=== PATIENT | female | born 1950 | race Hispanic/Latino ===

== ENCOUNTER 2018-01-16 13:29 | Emergency (ER) | payer BC, OTHER ==
[2018-01-16] MEDS ORDERED: LORazepam 2 MG/ML VIAL ONE (14:59)
[2018-01-16 15:02] LABS: Absolute Lymphocytes (CBC) 1.7 K/uL (0.7-4.9); Absolute Monocytes 0.9 K/uL (0.1-1.3); Basophils % 0.5 % (0-1.3); Eosinophils % 1.8 % (0-4.4); Hematocrit 45.7 % (36.0-45.0); Lymphocytes % 22.2 % (15.3-44.8); MCH 37.5 pg (27.0-35.0); MCV 109.6 fL (80-100); MPV 8.3 fL (7.6-11.3); Monocytes % 11.1 % (3.3-12.3); RBC Red Blood Cell Count 4.17 M/uL (3.86-4.86)
[2018-01-16 15:23] LABS: Potassium 3.5 mmol/L (3.5-5.1)
--- NOTE | 2018-01-16 16:03 | RAD REPORT ---
EXAM DESCRIPTION: CT - Soft Tissue Neck W/Contr CLINICAL HISTORY: SWELLING Neck and chest pain. COMPARISON: Thorax W/ Con dated 01/16/2018; Chest Single View dated 06/04/2017; Head Brain Wo Cont da carol 05/31/2017; Chest For Pe Angio dated 05/31/[address] soft tissue of the neck with contrast CT chest with contrast All CT scans are performed using dose optimization technique as appropriate and may include automated exposure control or mA/KV adjustment according to patient size. FINDINGS: Nasopharyngeal tissues are normal in appearance. Fossa Rosenmller are normal. Parapharyngeal fat triangles are symmetric. The salivary glands are symmetric. Tongue base is somewha t poorly assessed due to streak artifact. Left palatine tonsil appears mildly prominent. The epiglottic this is normal in thickness. No prevertebral soft tissue swelling. No jugular chain ad enopathy is present. The lungs are diffusely emphysematous. Subtle areas of ground-glass opacification bilaterally are not ed, significantly less than on the 05/31/2017 prior study. No worrisome nodule or mass is seen. No pulmonary embolism or acute aortic finding identified. No pleural or pericardial effusion. Mild thickening of the esophagus is present throughout its course. Prominent fatty liver is present. No lytic or blastic bone lesion. IMPRESSION: No acute abnormality is seen. Mild prominence of the left palatine tonsil is seen, nonspecific. Followup direct visualization may b e considered if clinically indicated. Mild bilateral ground-glass pulmonary opacities are seen, significantly improved since 06/12/2017 cherry or study.
[2018-01-16 17:06] LABS: Blood Morphology Comment NOTED (NOT SEEN); Macrocytosis 1+; Platelet Estimate ADEQ; Urine White Blood Cell Casts OK
--- NOTE | 2018-01-16 17:57 | EDPHYS ---
Physician Documentation [facility] Name: Yoanna Dillon Age: 67 yrs Sex: Female : 1950 Arrival Date: 01/16/2018 Time: 13:32 Bed 26 Private MD: ED Physician Fausto Edouard HPI: 01/16 17:49 This 67 yrs old Female presents to ER via Ambulatory with complaints of jr8 Numbness Of Face, Sinus Congestion, Swollen Glands. 17:49 Patient stated that she has been fighting a sinus infection for over a month. Had jr8 originally been on Augmentin but was having thrush and facial swelling so was reevaluated and taken off of that. Thrush is better but continues to have drainage, sinus pain, congestion, and now noticed swelling to bilateral supraclavicular regions . Severity of symptoms: At their worst the symptoms were moderate in the emergency department the symptoms are unchanged. The patient has not experienced similar symptoms in the past. The patient has not recently seen a physician. Historical: - Allergies: 13:46 No Known Allergies; aj1 - PMHx: 13:46 None; aj1 - Immunization history:: Adult Immunizations. - Social history:: Smoking status: Patient uses tobacco products, smokes one pack cigarettes per day. - Ebola Screening: : Patient denies travel to an Ebola-affected area in the 21 days before illness onset. ROS: 17:49 Eyes: Negative for injury, pain, redness, and discharge, Cardiovascular: Negative for jr8 chest pain, palpitations, and edema, Respiratory: Negative for shortness of breath, cough, wheezing, and pleuritic chest pain, Abdomen/GI: Negative for abdominal pain, nausea, vomiting, diarrhea, and constipation, Back: Negative for injury and pain, MS/Extremity: Negative for injury and deformity, Skin: Negative for injury, rash, and discoloration, Neuro: Negative for headache, weakness, numbness, tingling, and seizure. 17:49 ENT: Positive for rhinorrhea, sinus congestion, sinus pain, Negative for drainage from ear(s), ear pain, sore throat. 17:49 Neck: Positive for swollen nodes. Exam: 17:49 Head/Face: Normocephalic, atraumatic. Eyes: Pupils equal round and reactive to light, jr8 extra-ocular motions intact. Lids and lashes normal. Conjunctiva and sclera are non-icteric and not injected. Cornea within normal limits. Periorbital areas with no swelling, redness, or edema. ENT: Nares patent. No nasal discharge, no septal abnormalities noted. Tympanic membranes are normal and external auditory canals are clear. Oropharynx with no redness, swelling, or masses, exudates, or evidence of obstruction, uvula midline. Mucous membranes moist. Neck: Trachea midline, no thyromegaly or masses palpated, and no cervical lymphadenopathy. Supple, full range of motion without nuchal rigidity, or vertebral point tenderness. No Meningismus. Cardiovascular: Regular rate and rhythm with a normal S1 and S2. No gallops, murmurs, or rubs. Normal PMI, no JVD. No pulse deficits. Respiratory: Lungs have equal breath sounds bilaterally, clear to auscultation and percussion. No rales, rhonchi or wheezes noted. No increased work of breathing, no retractions or nasal flaring. Abdomen/GI: Soft, non-tender, with normal bowel sounds. No distension or tympany. No guarding or rebound. No evidence of tenderness throughout. Back: No spinal tenderness. No costovertebral tenderness. Full range of motion. Skin: Warm, dry with normal turgor. Normal color with no rashes, no lesions, and no evidence of cellulitis. MS/ Extremity: Pulses equal, no cyanosis. Neurovascular intact. Full, normal range of motion. Neuro: Awake and alert, GCS 15, oriented to person, place, time, and situation. Cranial nerves II-XII grossly intact. Motor strength 5/5 in all extremities. Sensory grossly intact. Cerebellar exam normal. Normal gait. 17:49 Chest/axilla: Lymph nodes: supraclavicular nodes, non-tender, palpable, bilaterally. Vital Signs: 13:46 BP 182 / 120; Pulse 108; Resp 20; Temp 97.1; Pulse Ox 97% on R/A; Weight 59.87 kg (R); aj1 Height 5 ft. 2 in. (157.48 cm) (R); Pain 0/10; 14:56 BP 173 / 92; Pulse 91; Resp 17; Pulse Ox 96% on R/A; tw2 15:38 BP 147 / 81; Pulse 75; Resp 17; Pulse Ox 96% on R/A; tw2 16:30 BP 162 / 92; Pulse 76; Resp 17; Pulse Ox 98% on R/A; tw2 17:29 BP 164 / 92; Pulse 95; Resp 17; Pulse Ox 97% on R/A; tw2 13:46 Body Mass Index 24.14 (59.87 kg, 157.48 cm) aj1 MDM: 14:21 Patient medically screened. jr8 17:49 Data reviewed: vital signs, nurses notes, lab test result(s), radiologic studies, CT jr8 scan, and as a result, I will discharge patient. Data interpreted: Pulse oximetry: on room air is 97 %. Interpretation: normal. Counseling: I had a detailed discussion with the patient and/or guardian regarding: the historical points, exam findings, and any diagnostic results supporting the discharge/admit diagnosis, lab results, radiology results, the need for outpatient follow up, an ENT specialist, to return to the emergency department if symptoms worsen or persist or if there are any questions or concerns that arise at home. 01/16 14:40 Order name: CBC with Diff; Complete Time: 17:15 jr8 01/16 14:40 Order name: Basic Metabolic Panel; Complete Time: 15:31 8 01/16 15:32 Order name: CT Soft Tissue Neck W/contr; Complete Time: 16:06 jr8 01/16 15:32 Order name: CT Chest W/ Con 8 01/16 17:07 Order name: CBC Smear Scan; Complete Time: 17:15 EDOH 01/16 14:40 Order name: IV; Complete Time: 14:56 jr8 Administered Medications: 14:55 Drug: Ativan 1 mg Route: IVP; Site: right antecubital; tw2 15:20 Follow up: Response: No adverse reaction; Marked relief of symptoms tw2 Disposition: 01/16/18 17:57 Discharged to Home. Impression: Acute sinusitis, Acute lymphadenitis. - Condition is Stable. - Discharge Instructions: Sinusitis, Adult, Lymphadenopathy. - Prescriptions for Prednisone 20 mg Oral Tablet - take 1 tablet by ORAL route once daily for 5 days; 5 tablet. Zithromax Z- Antwan 250 mg Oral Tablet - take 1 tablet by ORAL route as directed for 5 days Day 1 - take two (2) tablets one time. Day 2, 3, 4 , 5 take one (1) tablet once daily.; 6 tablet. - Medication Reconciliation Form, Thank You Letter, Antibiotic Education, Prescription Opioid Use form. - Follow up: Private Physician; When: 5 - 6 days; Reason: Recheck today's complaints, Continuance of care, Re-evaluation by your physician. - Problem is new. - Symptoms have improved. Signatures: Dispatcher [employer] EDFariha Wren RN RN aj1 Karson Colin PA PA jr8 Melva Shaw RN RN tw2 Corrections: (The following items were deleted from the chart) 18:02 17:57 01/16/2018 17:57 Discharged to Home. Impression: Acute sinusitis; Acute tw2 lymphadenitis. Condition is Stable. Forms are Medication Reconciliation Form, Thank You Letter, Antibiotic Education, Prescription Opioid Use. Follow up: Private Physician; When: 5 - 6 days; Reason: Recheck today's complaints, Continuance of care, Re-evaluation by your physician. Problem is new. Symptoms have improved. jr8
--- NOTE | 2018-01-16 17:57 | ER ---
Nurse's Notes [facility] Name: Yoanna Dillon Age: 67 yrs Sex: Female : 1950 Arrival Date: 01/16/2018 Time: 13:32 Bed 26 Private MD: Diagnosis: Acute sinusitis;Acute lymphadenitis Presentation: 01/16 13:42 Presenting complaint: Patient states: "3 weeks ago I went to a doctor about a sinus aj1 infection and he put me on antibiotics and a nose spray and something for sea sickness. About 7 days into taking the antibiotic I noticed my throat was swelling, and I saw another doctor and diagnosed me with thrush, and I took medications for those. The swelling in my face went down, but my lymph nodes are really swollen. Transition of care: patient was not received from another setting of care. Onset of symptoms was January 16, 2018. Risk Assessment: Do you want to hurt yourself or someone else? Patient reports no desire to harm self or others. Initial Sepsis Screen: Does the patient meet any 2 criteria? HR > 90 bpm. Does the patient have a suspected source of infection? Yes: Other: sinus infection. Care prior to arrival: None. 13:42 Method Of Arrival: Ambulatory aj1 13:42 Acuity: BIENVENIDO 3 aj1 Triage Assessment: 13:46 General: Appears in no apparent distress. comfortable, Behavior is calm, cooperative, aj1 appropriate for age. Pain: Denies pain. Neuro: Level of Consciousness is awake, alert, obeys commands. Cardiovascular: Patient's skin is warm and dry. Respiratory: Airway is patent Respiratory effort is even, unlabored, Respiratory pattern is regular, symmetrical. Historical: - Allergies: 13:46 No Known Allergies; aj1 - PMHx: 13:46 None; aj1 - Immunization history:: Adult Immunizations. - Social history:: Smoking status: Patient uses tobacco products, smokes one pack cigarettes per day. - Ebola Screening: : Patient denies travel to an Ebola-affected area in the 21 days before illness onset. Screenin:45 Abuse screen: Denies threats or abuse. Nutritional screening: No deficits noted. tw2 Tuberculosis screening: No symptoms or risk factors identified. Fall Risk None identified. Assessment: 14:00 General: Appears well groomed, Behavior is anxious. Pain: Denies pain. Neuro: Level of tw2 Consciousness is awake, alert, obeys commands, Oriented to person, place, situation. Cardiovascular: Denies chest pain, shortness of breath, Heart tones S1 S2 Capillary refill < 3 seconds Patient's skin is warm and dry. Respiratory: Airway is patent Respiratory effort is even, unlabored, Respiratory pattern is regular, symmetrical, Breath sounds are clear bilaterally. GI: No signs and/or symptoms were reported involving the gastrointestinal system. Abdomen is flat, Bowel sounds present X 4 quads. : No signs and/or symptoms were reported regarding the genitourinary system. EENT: Reports nasal congestion pain. Derm: swelling noted supraclavicular area. Musculoskeletal: Range of motion: intact in all extremities. 15:42 Reassessment: Patient appears in no apparent distress at this time. Patient and/or tw2 family updated on plan of care and expected duration. Pain level reassessed. Patient is alert, oriented x 3, equal unlabored respirations, skin warm/dry/pink. pt appears to be sleeping at this time, nad. 16:30 Reassessment: Patient appears in no apparent distress at this time. Patient and/or tw2 family updated on plan of care and expected duration. Pain level reassessed. Patient is alert, oriented x 3, equal unlabored respirations, skin warm/dry/pink. 17:30 Reassessment: Patient appears in no apparent distress at this time. Patient and/or tw2 family updated on plan of care and expected duration. Pain level reassessed. Patient is alert, oriented x 3, equal unlabored respirations, skin warm/dry/pink. 18:02 Reassessment: Patient appears in no apparent distress at this time. Patient and/or tw2 family updated on plan of care and expected duration. Pain level reassessed. Patient is alert, oriented x 3, equal unlabored respirations, skin warm/dry/pink. Vital Signs: 13:46 BP 182 / 120; Pulse 108; Resp 20; Temp 97.1; Pulse Ox 97% on R/A; Weight 59.87 kg (R); aj1 Height 5 ft. 2 in. (157.48 cm) (R); Pain 0/10; 14:56 BP 173 / 92; Pulse 91; Resp 17; Pulse Ox 96% on R/A; tw2 15:38 BP 147 / 81; Pulse 75; Resp 17; Pulse Ox 96% on R/A; tw2 16:30 BP 162 / 92; Pulse 76; Resp 17; Pulse Ox 98% on R/A; tw2 17:29 BP 164 / 92; Pulse 95; Resp 17; Pulse Ox 97% on R/A; tw2 13:46 Body Mass Index 24.14 (59.87 kg, 157.48 cm) aj1 ED Course: 13:32 Patient arrived in ED. as 13:45 Triage completed. aj1 13:46 Arm band placed on Patient placed in an exam room. aj1 13:50 Placed in gown. Bed in low position. Call light in reach. Pulse ox on. NIBP on. Warm tw2 blanket given. 13:57 Melva Shaw RN is Primary Nurse. tw2 14:21 Karson Colin PA is PHCP. jr8 14:21 Fausto Edouard MD is Attending Physician. jr8 14:45 Inserted saline lock: 22 gauge in right antecubital area, using aseptic technique. tw2 Blood collected. 15:[address] sj 15:52 CT Soft Tissue Neck W/contr In Process Unspecified. EDMS 15:52 CT Chest W/ Con In Process Unspecified. EDMS 15:59 CT completed. Patient tolerated procedure well. Patient moved back from CT. vm2 18:01 No provider procedures requiring assistance completed. IV discontinued, intact, tw2 bleeding controlled, No redness/swelling at site. Pressure dressing applied. Administered Medications: 14:55 Drug: Ativan 1 mg Route: IVP; Site: right antecubital; tw2 15:20 Follow up: Response: No adverse reaction; Marked relief of symptoms tw2 Outcome: 17:57 Discharge ordered by . jr8 18:01 Discharged to home ambulatory, with family, with significant other. tw2 18:01 Condition: stable 18:01 Discharge instructions given to patient, family, significant other, Instructed on discharge instructions, follow up and referral plans. medication usage, Demonstrated understanding of instructions, follow-up care, medications, Prescriptions given X 2. 18:02 Patient left the ED. tw2 Signatures: Dispatcher [employer] EDDC Fariha Blancas RN RN aj1 Patty Anguiano Amelia as Karson Colin PA PA jr8 Melva Shaw RN RN tw2 [place], [facility]2
[2018-01-16 18:22] VITALS: TEMP 97.1
[2018-01-16 18:27] VITALS: BP 164/92; O2SAT 97
--- NOTE | 2018-01-17 09:47 | RAD REPORT ---
EXAM DESCRIPTION: CT - Thorax W/ Con CLINICAL HISTORY: SWELLING Neck and chest pain. COMPARISON: Thorax W/ Con dated 01/16/2018; Chest Single View dated 06/04/2017; Head Brain Wo Cont da carol 05/31/2017; Chest For Pe Angio dated 05/31/2017 TECHNIQUE: CT soft tissue of the neck with contrast CT chest with contrast All CT scans are performed using dose optimization technique as appropriate and may include automated exposure control or mA/KV adjustment according to patient size. FINDINGS: Nasopharyngeal tissues are normal in appearance. Fossa Rosenmller are normal. Parapharyngeal fat triangles are symmetric. The salivary glands are symmetric. Tongue base is somewha t poorly assessed due to streak artifact. Left palatine tonsil appears mildly prominent. The epiglottic this is normal in thickness. No prevertebral soft tissue swelling. No jugular chain ad enopathy is present. The lungs are diffusely emphysematous. Subtle areas of ground-glass opacification bilaterally are not ed, significantly less than on the 05/31/2017 prior study. No worrisome nodule or mass is seen. No pulmonary embolism or acute aortic finding identified. No pleural or pericardial effusion. Mild thickening of the esophagus is present throughout its course. Prominent fatty liver is present. No lytic or blastic bone lesion. IMPRESSION: No acute abnormality is seen. Mild prominence of the left palatine tonsil is seen, nonspecific. Followup direct visualization may b e considered if clinically indicated. Mild bilateral ground-glass pulmonary opacities are seen, significantly improved since 06/12/2017 cherry or study.
== END 2018-01-16 18:02 | disposition home or self-care (01) ==
LOC: ER 13:29
DX: J01.90 Acute sinusitis, unspecified (principal); L04.9 Acute lymphadenitis, unspecified; F17.210 Nicotine dependence, cigarettes, uncomplicated
CPT/HCPCS: 36415; 70491; 71260; 80048; 85025; 96374; 99284; Q9967

== ENCOUNTER 2021-09-06 18:29 | Inpatient (IN) | payer OTHER ==
--- NOTE | 2021-09-06 10:30 | R.PREADM ---
PRE-ADMISSION SCREENING FORM SCREENING DATE AND TIME 09/05/2021 11:35 (CDT) ANTICIPATED REHAB ADMISSION DATE 09/07/2021 REFERRING FACILITY [facility] REFERRAL DATE AND TIME 09/02/2021 11:35 (CDT) REFERRAL ROOM# J513 ACUTE ADMIT DATE 08/31/2021 Previous Rehabilitation(s): No. 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 Manuel Benitez M.D. MR# [id number] NAME LAICIA FERRELL ADDRESS [address] [place] [address] PHONE [facility] [[email or web address] [id number] DATE OF 1950 AGE 71 SSN# [id number] GENDER female MARITAL STATUS ADMIT FROM 02 - [facility] PRE-HOSPITAL LIVING SETTING 01 - Home (private home/apt. board/care, assisted living, [place] [facility], transitional living) HOME TYPE AND DETAILS Type of home: single family house # of levels in the residence: 1 # of steps within the residence: 0 # of steps to enter the residence: 20 PRE-HOSPITAL LIVING WITH Family/Relatives FAMILY SUPPORT Yes PRIMARY FAMILY CONTACT NAME GLORIA JACOME PHONE PRIMARY FAMILY CONTACT ON ADM.? no IS PRIMARY FAMILY CONTACT AUTH. REP.? no 1ST EMERGENCY CONTACT GLORIA AYAZ PHONE 1ST CONTACT ON ADM. no IS 1ST CONTACT AUTH. REP.? no PHONE 2ND CONTACT ON ADM.? no PATIENT EMPLOYMENT STATUS Retired (for age) PATIENT EMPLOYER No Employer PAYOR INFORMATION: 1ST PAYOR NAME ALLA 1ST PAYOR PHONE [phone] 1ST PAYOR INJURY/ILLNESS DUE TO ACCIDENT? No ANOTHER CONSTITUTION PARTY RESPONSIBLE? No PRIMARY REHAB/ACUTE DIAGNOSIS: ACUTE RIGHT SIDED SUBDURAL HEMATOMA ONSET DATE 08/31/2021 REHAB IMPAIRMENT CATEGORY (ALICIA): 03 Nontraumatic brain injury (NTBI) MEETS 60% rule PRIMARY DIAGNOSIS-RELATED SURGERIES: N/A INTERVENTIONS: - DEPRESSION Patient will continue with administered medications per MD - Hypertension Promote regular physical activity Assess/ Monitor patient B/P and treat with prescribed medications Implement healthy diet Maintain SBP <150 - Pain Non pharmacological pain management Monitor for headaches Educate pt on relaxation techniques and deep breathing Assess/Monitor pt pain and treat with prescribed pain medications - Wound care Baci TID for 1 week, TID thereafter RISK FOR COMPLICATIONS: - Skin Breakdown Encourage ambulation as tolerated Nursing will assess skin daily using assessment tool and will place on Skin Breakdown Precautions as Indicated per protocol Use of pillows or foam wedges while in bed Repositioning q 2 hours - Falls Patient will be evaluated for Fall Precautions and will be placed on Fall Precautions as indicated pe r protocol. Provide assistance getting out of bed and with ambulation Provide assistive devices Maintain call light within patient reach for easy access to nursing assistance - WEAKNESS Nursing and therapy will help to get patient stronger - Pain Educate patient on relaxation and deep breathing techniques Administer prescribed pain medication as needed Anticipate the need for pain medication for optimal pain managment - Stroke Assess/ Monitor and maintain patient pain level Assess/ Monitor patient blood pressure - DVT Active and Passive ROM exercises Assist patient with frequent position changes Elevate BLE SUMMARY OF ACUTE HOSPITALIZATION: Pt. is a 71 yo Right-handed female. On 08/31/2021 she was admitted to [facility] with diagnosis ACUTE RIGHT SIDED SUBDURAL HEMATOMA . Her impairment category is Brain Dysfunction 02 - Non-traumatic Brain Dysfunction (02.1). Pre-morbidly, Pt. was independent/mod-I in Locomotion, Safety Awareness, Social Cognition, Balance, a nd Transfers Control; and she had good Sphincter Control, Self-Care, Communication, and Endurance. Currently, she has deficits of Locomotion, Social Cognition, Safety Awareness, Balance, Transfers Con trol, Sphincter Control, Self-Care, Communication, and Endurance. Pt. is now referred to [facility] for acute in-patient rehabilitation in order to maximize patient's functional independence in activities of daily living, strength, ROM, and mobi lity. Patient has realistic goal of being discharged at assistance level 7-Ind to reside at Home with Fami ly/Relatives. PAST MEDICAL AND SURGICAL HISTORY: - MedicalCardiovascular HTN hysterectomy cataract procedure - Mental Illness Depression MEDICATION ALLERGIES: No Known Drug Allergies (NKDA) ENVIRONMENTAL ALLERGIES: - Substance Allergies None Known - Other Allergies None Known CODE STATUS: Full code WEIGHT/HEIGHT/BMI: WEIGHT unknown lbs HEIGHT 5' unknown" BMI N/A DIET: - Diet Type Regular - Diet - Solid Texture Regular - Diet - Liquid Texture Regular - Tube Feed N/A SKIN DIAGRAM: on Head; extent - small; stage - NS(Not Stageable). Treatment - . REVIEW OF SYSTEMS: - Gen Alert and awake Lying in bed No apparent distress Oriented to: person, time, and place - Vital Signs Temperature: 98.1 F SBP/DBP: 164/92 Pulse: 103 Resp: 27 Vital signs stable, afebrile - CVS RRR VITAL SIGNS Temperature: 98.1 F SBP/DBP: 164/92 Pulse: 103 Resp: 27 Vital signs stable, afebrile MEDICATIONS/TREATMENT: Other- See attached MAR (Medication Administration Record). CURRENT SPHINCTER CONTROL: Pre-hospital bladder status: unspecified # of bladder accidents in the last 7 days prior to screenin Pre-hospital bowel status: unspecified # of bowel accidents in the last 7 days prior to screenin Last Bowel Movement Date: 09/05/2021 CURRENT LOCOMOTION STATUS: distance walked 2 feet TO THE RIGHT 2 TO THE LEFT DETAILED CURRENT FUNCTIONAL STATUS: - Bladder accident frequency: 7-Ind - No accidents in the past 7 days - Bowel accident frequency: 7-Ind - No accidents in the past 7 days - Walking score based on distance walked: 0(N/A) score based on distance walked: 1(<=50ft) - Wheelchair score based on distance traveled: 0(N/A) QI SCORES: - Self-Care A. Eating 03-Partial/moderate assistance B. Oral hygiene 03-Partial/moderate assistance C. Toileting hygiene 03-Partial/moderate assistance E. Shower/bathe self 03-Partial/moderate assistance F. Upper body dressing 03-Partial/moderate assistance G. Lower body dressing 03-Partial/moderate assistance H. Putting on/taking off footwear 88-Not attempted due to medical condition or safety concerns - Mobility A. Roll left and right 03-Partial/moderate assistance B. Sit to lying 03-Partial/moderate assistance C. Lying to sitting on side of bed 03-Partial/moderate assistance D. Sit to stand 03-Partial/moderate assistance E. Chair/lem-nn-burhl transfer 03-Partial/moderate assistance F. Toilet transfer 03-Partial/moderate assistance G. Car transfer 88-Not attempted due to medical condition or safety concerns I. Walk 10 feet 88-Not attempted due to medical condition or safety concerns J. Walk 50 feet with two turns 88-Not attempted due to medical condition or safety concerns K. Walk 150 feet 88-Not attempted due to medical condition or safety concerns L. Walking 10 feet on uneven surfaces 88-Not attempted due to medical condition or safety concerns M. 1 step (curb) 88-Not attempted due to medical condition or safety concerns N. 4 steps 88-Not attempted due to medical condition or safety concerns O. 12 steps 88-Not attempted due to medical condition or safety concerns P. Picking up object 88-Not attempted due to medical condition or safety concerns R. Wheel 50 feet with two turns 88-Not attempted due to medical condition or safety concerns S. Wheel 150 feet 88-Not attempted due to medical condition or safety concerns - Bladder and Bowel Bladder continence Bowel continence - Endurance Fair - Balance Fair - Safety Awareness Fair CURRENT FUNC. DEFICITS: Self-Care, Mobility, Endurance, Balance, and Safety Awareness CURRENT / PREVIOUS ASSISTIVE DEVICES: Rolling Walker HISTORY OF FALLS. HAS THE PATIENT HAD TWO OR MORE FALLS IN THE PAST YEAR OR ANY FALL WITH INJURY IN T HE PAST YEAR?: No PRIOR SURGERY. DID THE PATIENT HAVE MAJOR SURGERY DURING THE 100 DAYS PRIOR TO ADMISSION?: No THERAPY NOTES FROM ACUTE CARE: Attached. WEIGHT BEARING STATUS: WBAT PATIENT NEEDS ACTIVE AND ONGOING THERAPEUTIC INTERVENTION OF MULTIPLE THERAPY DISCIPLINES, INCLUDING: - Dietary and Nutrition Adequate Nutrition. Nutritional Education. Nutritional Supplements. Evaluate and Treat. - Occupational Therapy Cognitive Retraining. Patient needs Occupational Therapy for a daily minimum of 1.5 hours at least 5 out of 7 days, to improve Activities of Daily Living, including: Eating, Grooming, Bathing, Dressing, Toileting, Toilet Transfers, Community Reintegration, Higher functional activities, Adaptive Equipme nt, Splinting, Household Tasks, and Other activities as determined. Visual Perceptual Training. Evalu ate and Treat. Safety Awareness. ADL Training. Transfer Training. Household Tasks. Adaptive Equipment . UE Strengthening. Patient/Family Education. - Speech Therapy Cognitive Training. Expressive Language Skills. Memory Strategies. Patient needs Speech Therapy for a daily minimum of 1.5 hours at least 5 out of 7 days, to improve: Swallowing, Cognition, Language Ski lls, and Compensatory Strategies. Receptive Language Skills. Speech Intelligibility Training. Evaluat e and Treat. - Physical Therapy Patient needs Physical Therapy for a daily minimum of 1.5 hours at least 5 out of 7 days, to improve: Mobility, Strengthening, Transfers, Stretching, ROM, Endurance, Ability to manage stairs, Gait, and Balance. Evaluate and Treat. Balance Training. Gait Training. Safety Awareness. Transfer Training. Pa tient/Family Education. LE Strengthening. Modalities Training. PATIENT NEEDS CLOSE MEDICAL SUPERVISION BY A REHABILITATION PHYSICIAN FOR: Coordination of Treatment Team Wound Care PATIENT REQUIRES 24X7 REHAB NURSING FOR MEDICAL AND FUNCTIONAL MGT. OF THE FOLLOWING DEFICITS: Disease Management Medication Management Patient requires 24x7 Rehabilitation Nursing for: Pain Issues, Identifying and preventing risk factor s, Monitoring and reporting current medical conditions, Assisting with ambulation and transfer, Amor ting with all ADL-s, Teaching patients about disease process and medications, Family teaching, Provid ing safe environment, Bowel and Bladder Issues, Skin Integrity, and Medication Management Patient/Family Education Providing Safe Environment Skin Integrity PATIENT REQUIRES INTENSIVE, COORDINATED INTERDISCIPLINARY APPROACH TO REHAB: Arranging Home Equipment/Services Discharge Planning Family Intervention/Training Patient needs Dietary and Nutrition Services for: Adequate Nutrition, Nutritional Supplements, and Nu tritional Education Patient needs General Merchandise Salesperson and/or Case Management for: Discharge Planning, Arranging Home Equipmen t or Services, and Family Interventions General Merchandise Salesperson/Case Management PATIENT REHAB POTENTIAL: Naye FERRELL is able and expected to receive 3 hours of individualized therapy daily on at least 5 of every 7 days Naye FERRELL's prognosis for significant practical improvement within a reasonable period of time a ppears Good Expected level of measurable improvement will be of a practical value to Naye FERRELL's functional capacity or adaptations to impairments Has a viable Discharge Plan Medically appropriate; condition is sufficiently stable to participate in intensive rehab program DISCHARGE PLAN: - Estimated Length of Stay (days) 13. - Consensus on plan Discharge plan has been discussed with primary caregiver. Patient/Family is in agreement with the heavenly n. Primary caregiver is in agreement with the plan. - Patient/Family Goals Return home independently. - Planned Living Setting Upon Discharge Home, to live with Family/Relatives. Transitional Living. RECOMMENDED CARE LEVEL: IRF RECOMMENDATION DETAILS: Recommended Admission to Comprehensive Rehabilitation Program to Increase Functional [place] SCREENER'S COMPLETENESS CONFIRMATION: - Screening Confirmation The patient data collection on this preadmission screening form is finished PHYSICIANS REVIEW AND ADMISSION DETERMINATION Admit - Based on my review of the Pre-Admission Screening results, in my medical judgment and experie nce, I concur with the findings and recommend admission to [facility], as this patient requires an IRF level of care. SIGNATURE PANEL: Clinical Liaison - [electronically] signed by Elidia Steen on 09/06/2021 at 10:08 (CDT) Physician Reviewer - [electronically] signed by Dr. Manuel Benitez M.D. on 09/06/2021 at 10:30 (CDT )
--- OUTSIDE RECORDS SUMMARY | 2021-09-06 18:31 | XMS REPORT | Continuity of Care Document ---
:1950 Author Organization [facility] t Address [address] [id number] Care Team Providers Name Role Phone BARB ELLISON Primary Care Physician Unavailable SERGEY DORSEY Attending Clinician Unavailable DR BARB ELLISON Attending Clinician Unavailable [phone] Attending Clinician Unavailable [id number] Attending Clinician Unavailable MEGA SHERWOOD Admitting Clinician Unavailable DR SCOT Admitting Clinician Unavailable Payers Payer Name Policy Type Policy Number Effective Date Expiration Date [facility] [employer]LL[employer] [id number] 2021 00:00:00 [facility] [id number] [employer]LLMED Problems This patient has no known problems. Allergies, Adverse Reactions, Alerts Allergy Allergy Status Severity Reaction(s) Onset Inactive Treating Comm ents Source Name Type Date Date Clinician No Known MA Active UNKNOWN [facility] Medications This patient has no known medications. Procedures This patient has no known procedures. Encounters Start End Encounter Admission Attending Care Care Encounter Source Date/Time Date/Time Type Type Clinicians Facility Department ID 2021-09-05 Outpatient [facility] [id number] [place] 10:53:56 [id number] Health 2021-08-31 2021-09-06 Inpatient E [facility] [address] [facility] 07:15:00 16:08:00 SERGEY 2021-06-07 2021-06-07 Outpatient BARB REINOSO OS [id number] El 09:43:00 10:46:00 [id number] Cam po [id number] [facility] Results This patient has no known results.
[2021-09-06] MEDS ORDERED: LIDOCAINE 4% TOP SOLUTION MM ONE (19:18)
[2021-09-06] MEDS: BACITRACIN OINTMENT 14 GM TUBE TOP SCH (21:00)
[2021-09-06] MEDS ORDERED: BACITRACIN OINTMENT 14 GM TUBE TOP SCH (21:00)
[2021-09-06] MEDS: METOCLOPRAMIDE 5 MG TAB PO SCH (21:31)
[2021-09-06] MEDS: DOCUSATE NA 100 MG CAP PO SCH (21:31)
[2021-09-06] MEDS: ACETAMINOPHEN 325 MG TABLET PO PRN (21:31)
[2021-09-06] MEDS: levETIRAcetam 500 MG TAB PO SCH (21:31)
[2021-09-06] MEDS: GABAPENTIN 300 MG CAP PO SCH (21:32)
[2021-09-06] MEDS: MELATONIN 3 MG TABLET PO SCH (21:32)
[2021-09-06] MEDS: methocarbamoL 500 MG TAB PO SCH (21:32)
[2021-09-07 04:50] LABS: Absolute Lymphocytes (CBC) 1.4 K/uL (0.7-4.9); Hematocrit 24.6 % (36.0-45.0); Lymphocytes % 25.5 % (15.3-44.8); MCV 111.2 fL (80-100); MPV 7.7 fL (7.6-11.3); RBC Red Blood Cell Count 2.21 M/uL (3.86-4.86)
[2021-09-07] MEDS: methocarbamoL 500 MG TAB PO SCH ×3 (04:50→21:11)
[2021-09-07 05:06] LABS: Albumin 2.5 g/dL (3.4-5.0); Potassium 3.4 mmol/L (3.5-5.1); Prealbumin 11.4 mg/dL (20-40)
[2021-09-07 05:08] LABS: Magnesium 1.4 mg/dL (1.8-2.4)
[2021-09-07 05:21] LABS: Blood Morphology Comment NOTED (NOT SEEN); Macrocytosis 2+; Platelet Estimate ADEQ
[2021-09-07] MEDS: METOCLOPRAMIDE 5 MG TAB PO SCH ×4 (07:46→21:11)
[2021-09-07] MEDS: POTASSIUM 25 MEQ EFFERV TAB PO SCH (07:46)
[2021-09-07] MEDS: NICOTINE 14 MG/PAT TD SCH (07:47)
[2021-09-07] MEDS: THIAMINE HCL 100 MG TABLET PO SCH (07:47)
[2021-09-07] MEDS: DOCUSATE NA 100 MG CAP PO SCH ×3 (07:47→21:11)
[2021-09-07] MEDS: levETIRAcetam 500 MG TAB PO SCH ×2 (07:47→21:12)
[2021-09-07] MEDS: FOLIC ACID 1 MG TABLET PO SCH (07:47)
[2021-09-07] MEDS: MULTIVITAMIN TAB PO SCH (07:47)
[2021-09-07] MEDS: GABAPENTIN 300 MG CAP PO SCH ×2 (07:48→14:03)
[2021-09-07] MEDS: SOD CHLORIDE 0.65% NASAL SPRAY NAS PRN ×2 (07:49→21:10)
[2021-09-07] MEDS: LIDOCAINE 4% TOP SOLUTION MM SCH (07:49)
[2021-09-07] MEDS: BACITRACIN OINTMENT 14 GM TUBE TOP SCH ×3 (07:50→21:10)
[2021-09-07] MEDS: CODEINE 30MG/APAP 300MG TAB PO PRN ×2 (08:05→17:44)
[2021-09-07] MEDS: DRONABINOL 2.5 MG PO SCH ×2 (09:00→21:00)
--- NOTE | 2021-09-07 09:47 | P.RH.PN ---
Estimated Length of Stay: 14 Expected Discharge Date: 09/20/21 Discharge Disposition Plan: Home Family Support: Yes Half-Way Goal: Mobility, Transfers, Self Care Vital Signs: Last Vital Signs Temp 97.4 F 09/07/21 08:26 Pulse 82 09/07/21 08:26 Resp 17 09/07/21 08:26 BP 176/70 H 09/07/21 08:26 Pulse Ox 95 09/07/21 08:26 Laboratory: Laboratory Last Values WBC 5.7 K/uL (4.3-10.9) 09/07/21 04:06 RBC 2.21 M/uL (3.86-4.86) L 09/07/21 04:06 Hgb 8.4 g/dL (12.0-15.0) L 09/07/21 04:06 Hct 24.6 % (36.0-45.0) L 09/07/21 04:06 MCV 111.2 fL (80-100) H D 09/07/21 04:06 MCH 38.2 pg (27.0-35.0) H D 09/07/21 04:06 MCHC 34.3 g/dL (32.0-36.0) 09/07/21 04:06 RDW 17.2 % (12.1-15.2) H 09/07/21 04:06 Plt Count 266 K/uL (152-406) 09/07/21 04:06 MPV 7.7 fL (7.6-11.3) 09/07/21 04:06 Neutrophils % 50.1 % (41.7-73.7) 09/07/21 04:06 Lymphocytes % 25.5 % (15.3-44.8) 09/07/21 04:06 Monocytes % 20.8 % (3.3-12.3) H 09/07/21 04:06 Eosinophils % 2.6 % (0-4.4) 09/07/21 04:06 Basophils % 1.0 % (0-1.3) 09/07/21 04:06 Absolute Neutrophils 2.9 K/uL (1.8-8.0) 09/07/21 04:06 Segmented Neutrophils 48 % (40-80) 09/07/21 04:06 Band Neutrophils 3 % (0-1) H 09/07/21 04:06 Absolute Lymphocytes 1.4 K/uL (0.7-4.9) 09/07/21 04:06 Lymphocytes 26 % (15-42) 09/07/21 04:06 Monocytes 17 % (0-10) H 09/07/21 04:06 Absolute Monocytes 1.2 K/uL (0.1-1.3) 09/07/21 04:06 Eosinophils 1 % (0-3) 09/07/21 04:06 Absolute Eosinophils 0.1 K/uL (0-0.5) 09/07/21 04:06 Basophils 1 % (0-1) 09/07/21 04:06 Absolute Basophils 0.1 K/uL (0-0.5) 09/07/21 04:06 Reactive Lymphocytes 4 % 09/07/21 04:06 Platelet Estimate Adeq 09/07/21 04:06 Macrocytosis 2+ 09/07/21 04:06 Morphology Comment Noted (NOT SEEN) 09/07/21 04:06 Sodium 138 mmol/L (136-145) 09/07/21 04:06 Potassium 3.4 mmol/L (3.5-5.1) L 09/07/21 04:06 Chloride 105 mmol/L (98-107) 09/07/21 04:06 Carbon Dioxide 27 mmol/L (21-32) 09/07/21 04:06 Anion Gap 9.4 mEq/L (5.0-15.0) 09/07/21 04:06 BUN 12 mg/dL (7-18) 09/07/21 04:06 Creatinine 0.41 mg/dL (0.55-1.3) L 09/07/21 04:06 Est GFR (CKD-EPI) 105 ml/min (=/>90) 09/07/21 04:06 Glucose 96 mg/dL (74-106) 09/07/21 04:06 Calcium 8.6 mg/dL (8.5-10.1) 09/07/21 04:06 Magnesium 1.4 mg/dL (1.8-2.4) L* 09/07/21 04:06 Albumin 2.5 g/dL (3.4-5.0) L 09/07/21 04:06 Prealbumin 11.4 mg/dL (20-40) L 09/07/21 04:06 Weight: 110 lb Wound Present: No Physician Update: Labs reviewed. To be evaluated. At contact guard with ambulation using a rolling walker. Comment: no skin breakdown Summary: Patient's care plan and senior care goals have been reviewed and revised as necessary. Please see the Rehabilitation Signature page for all necessary signatures.
[2021-09-07] MEDS: BISACODYL 10 MG RECTAL SUPP PR SCH (11:26)
[2021-09-07] MEDS ORDERED: MAGNESIUM SULFATE 1 gm IVPB 1 GM/100 ML BAG IV ONE (11:29)
[2021-09-07] MEDS: MAGNESIUM OXIDE 400 MG TAB PO SCH ×2 (12:02→21:11)
--- NOTE | 2021-09-07 14:45 | R.HP ---
HISTORY AND PHYSICAL FACILITY: [facility] ENCOUNTER DATE AND TIME: 09/07/2021 14:35 (CDT) MR#: [id number] NAME ALICIA FERRELL ADDRESS: [address] [place] [address] CITY: [place] [address] [id number] PHONE: DATE OF : 1950 AGE: 71 SSN# [id number] GENDER: Female MARITAL STATUS PRE-HOSPITAL LIVING SETTING 01 - Home (private home/apt. board/care, assisted living, mcc, transitional living) PRE-HOSPITAL LIVING WITH Family/Relatives ENCOUNTER PHYSICIAN: Dr. Manuel Benitez M.D. REFERRING DOCTOR: SERGEY DORSEY MD DATE OF ADMISSION: 09/07/2021 14:36 (CDT) REFERRING FACILITY [facility] HOME TYPE AND DETAILS: Type of home: single family house # of levels in the residence: 1 # of steps within the residence: 0 # of steps to enter the residence: 20 ONSET DATE: 08/31/2021 PRIMARY DIAGNOSIS-RELATED SURGERIES: N/A HISTORY OF PRESENT ILLNESS (HPI): Pt. is a 71 yo Right-handed female. On 08/31/2021 she was admitted to [facility] with diagnosis ACUTE RIGHT SIDED SUBDURAL HEMATOMA . Her impairment category is Brain Dysfunction 02 - Closed Injury (02.22). Pre-morbidly, Pt. was independent/mod-I in Locomotion, Safety Awareness, Social Cognition, Balance, a nd Transfers Control; and she had good Sphincter Control, Self-Care, Communication, and Endurance. Currently, she has deficits of Locomotion, Social Cognition, Safety Awareness, Balance, Transfers Con trol, Sphincter Control, Self-Care, Communication, and Endurance. Pt. is now referred to [facility] for acute in-patient rehabilitation in order to maximize patient's functional independence in activities of daily living, strength, ROM, and mobi lity. Patient has realistic goal of being discharged at assistance level 7-Ind to reside at Home with Fami ly/Relatives. MEDICATION ALLERGIES: No Known Drug Allergies (NKDA) ENVIRONMENTAL ALLERGIES: - Substance Allergies None Known - Other Allergies None Known SOCIAL HISTORY: - Home Living Family/Relatives REVIEW OF SYSTEMS: - Gen No Chills Fatigue No Fever - Eyes No Double Vision No itchiness - ENMT Difficulty Swallowing - CVS Chest Discomfort No Chest Pain Fatigue No Weight Gain - Resp No Cough No Shortness of Breath - GI Continent No Abdominal Pain No Constipation No Diarrhea - Continent No Kidney Pain No Painful Urination No Urinary Urgency - MSK No Joint Pain Muscle Cramps Stiffness - Skin No Itching No Rash No Suspicious Lesions - Neuro Coordination Difficulty Difficulty with Concentration Memory Loss No Seizures Weakness - Psych Anxiety No Depression No HIV Exposure No Persistent Infections No Seasonal Allergies - Endo No Cold/Heat Intolerance No Excessive Hunger No Excessive Thirst No Excessive Urination PHYSICAL EXAM - Gen Alert and awake Lying in bed No apparent distress Oriented to: person, time, and place - Skin Bruising on arms and forearms. Bilateral facial bruising, sutures in left upper lip - Eyes Hematoma around both eyes with injected sclera. - ENMT [place] cervical collar is in place - Neck [place] cervical collar is in place. - CVS RRR - Chest No abnormalities - Resp No wheezing - Abd Soft - GI Non distended Deferred - No abnormalities - Ext No significant edema - MSK 4/5 weakness in both lower extremities. - Neuro 4/5 strength bilaterally upper and lower extremities. - Psych Mild anxiety. VITAL SIGNS Temperature: 97.4 F SBP/DBP: 176/70 Pulse: 82 Resp: 16 NURSING: - Shower allowing shower - Bladder care per protocol - Skin care per protocol PRECAUTIONS: - Fall Precaution 1 to 1 supervision ACTIVITIES OOB only with supervision QI SCORES: - Self-Care A. Eating 03-Partial/moderate assistance B. Oral hygiene 03-Partial/moderate assistance C. Toileting hygiene 03-Partial/moderate assistance E. Shower/bathe self 03-Partial/moderate assistance F. Upper body dressing 03-Partial/moderate assistance G. Lower body dressing 03-Partial/moderate assistance H. Putting on/taking off footwear 88-Not attempted due to medical condition or safety concerns - Mobility A. Roll left and right 03-Partial/moderate assistance B. Sit to lying 03-Partial/moderate assistance C. Lying to sitting on side of bed 03-Partial/moderate assistance D. Sit to stand 03-Partial/moderate assistance E. Chair/mrv-wu-mbmhd transfer 03-Partial/moderate assistance F. Toilet transfer 03-Partial/moderate assistance G. Car transfer 88-Not attempted due to medical condition or safety concerns I. Walk 10 feet 88-Not attempted due to medical condition or safety concerns J. Walk 50 feet with two turns 88-Not attempted due to medical condition or safety concerns K. Walk 150 feet 88-Not attempted due to medical condition or safety concerns L. Walking 10 feet on uneven surfaces 88-Not attempted due to medical condition or safety concerns M. 1 step (curb) 88-Not attempted due to medical condition or safety concerns N. 4 steps 88-Not attempted due to medical condition or safety concerns O. 12 steps 88-Not attempted due to medical condition or safety concerns P. Picking up object 88-Not attempted due to medical condition or safety concerns R. Wheel 50 feet with two turns 88-Not attempted due to medical condition or safety concerns S. Wheel 150 feet 88-Not attempted due to medical condition or safety concerns - Bladder and Bowel Bladder continence Bowel continence - Endurance Fair - Balance Fair - Safety Awareness Fair CURRENT FUNC. DEFICITS: Self-Care, Mobility, Endurance, Balance, and Safety Awareness MEDICATIONS: - Other See attached MAR (Medication Administration Record) ASSESSMENT: Pt. is a 71 yo Right-handed female.On 08/31/2021 she was admitted to [facility] with diagnosis ACUTE RIGHT SIDED SUBDURAL HEMATOMA.Her impairment category is Brain Dysfunction 02 - Closed Injury (05.17).Pre-morbidly, Pt. was independent/mod-I in Locomotion, Safety Awareness, Social Cognition, Ba jessa, and Transfers Control; and she had good Sphincter Control, Self-Care, Communication, and Endur ance.Currently, she has deficits of Locomotion, Social Cognition, Safety Awareness, Balance, Transfer s Control, Sphincter Control, Self-Care, Communication, and Endurance.Pt. is now referred to [facility] for acute in-patient rehabilitation in order to maximize patient's function al independence in activities of daily living, strength, ROM, and mobility.- Rehab Goal Patient has realistic goal of being discharged at assistance level 7-Ind to reside at Home with Fami ly/Relatives. - Physical Therapy Gait dysfunction - to improve, our physical therapists will perform initial evaluation of pt's status upon admission and devise an individualized program for Gait Training, and Wheel Chair mobility Inability to transfer - to improve, our physical therapists will perform initial evaluation of pt's s tatus upon admission and devise an individualized program for Bed mobility Need for home safety evaluation - to improve, our physical therapists will perform initial evaluation of pt's status upon admission and devise an individualized program for Home Evaluation Need in caregiver upon discharge - to improve, our physical therapists will perform initial evaluatio n of pt's status upon admission and devise an individualized program for Caregiver Training New precaution - to improve, our physical therapists will perform initial evaluation of pt's status u kesha admission and devise an individualized program for Patient precaution education Edema - to improve, our physical therapists will perform initial evaluation of pt's status upon admi ssion and devise an individualized program for Elevation Training, and Lymphedema Therapy Poor balance - to improve, our physical therapists will perform initial evaluation of pt's status upo n admission and devise an individualized program for Balance Training Poor endurance - to improve, our physical therapists will perform initial evaluation of pt's status u kesha admission and devise an individualized program for Endurance Training Weakness - to improve, our physical therapists will perform initial evaluation of pt's status upon ad mission and devise an individualized program for Aquatic Therapy, Neuromuscular Reeducation, and Stre ngthening Achieving independence - to improve, our physical therapists will perform initial evaluation of pt's status upon admission and devise an individualized program for Community Reintegration Activities - Occupational Therapy ADL deficits - to improve, our occupation therapists will perform initial evaluation of pt's status u kesha admission and devise an individualized program for Bathing, Bed mobility, Community Reintegration , Cooking, Dressing, Eating, Fine Motor Skills, Grooming, Homemaking, Kitchen Mobility, Laundry, ent Education, Safety Awareness, Splinting - Positioning, Transfers(Toilet, Tub, Shower), and Wheel C hair Management Cognitive deficits - to improve, our occupation therapists will perform initial evaluation of pt's st atus upon admission and devise an individualized program for Cognition - orientation Need for insurance healthcare consultant - to improve, our occupation therapists will perform initial evaluation of pt's s tatus upon admission and devise an individualized program for Caregiver Training Weakness - to improve, our occupation therapists will perform initial evaluation of pt's status upon admission and devise an individualized program for Aquatic Therapy, Balance, Endurance, UE ROM, and U E strengthening MEDICAL PLAN: - Diet Type Start Regular - Diet - Liquid Texture Start Regular - Tube Feed Start N/A - Bladder care per protocol - Fall Precaution 1 to 1 supervision - Skin care per protocol - Other See attached MAR (Medication Administration Record) - Diet - Solid Texture Regular - Shower shower DISCHARGE PLAN: - Estimated Length of Stay (days) 13. - Consensus on plan Discharge plan has been discussed with primary caregiver. Patient/Family is in agreement with the heavenly n. Primary caregiver is in agreement with the plan. - Patient/Family Goals Return home independently. - Planned Living Setting Upon Discharge Home, to live with Family/Relatives. Transitional Living. SIGNATURE PANEL: (CDT)
--- NOTE | 2021-09-07 14:47 | PAPE ---
POST ADMISSION PHYSICIAN EVALUATION PATIENT: [facility] MR# [id number] REFERRING DOCTOR SERGEY DORSEY MD EVALUATION DATE AND TIME 09/07/2021 14:45 (CDT) NAME ALICIA FERRELL DATE OF 1950 AGE 71 PHONE N# [id number] GENDER female EVALUATING PHYSICIAN Dr. Manuel Benitez M.D. ADMISSION DIAGNOSIS: ACUTE RIGHT SIDED SUBDURAL HEMATOMA ONSET DATE 08/31/2021 POST-ADMISSION FUNCTIONAL/MEDICAL STATUS: - Bladder Same accident frequency: 7-Ind - No accidents in the past 7 days - Bowel Same accident frequency: 7-Ind - No accidents in the past 7 days - Walking Same score based on distance walked: 0(N/A) Same score based on distance walked: 1(<=50ft) - Wheelchair Same score based on distance traveled: 0(N/A) STATUS CHANGE EVALUATION: No change in Functional or Medical Status is identified compared with Pre-Admission screening. PATIENT NEEDS CLOSE MEDICAL SUPERVISION BY A REHABILITATION PHYSICIAN FOR: Coordination of Treatment Team Wound Care PATIENT REQUIRES 24X7 REHAB NURSING FOR MEDICAL AND FUNCTIONAL MGT. OF THE FOLLOWING DEFICITS: Disease Management Medication Management Patient requires 24x7 Rehabilitation Nursing for: Pain Issues, Identifying and preventing risk factor s, Monitoring and reporting current medical conditions, Assisting with ambulation and transfer, Amor ting with all ADL-s, Teaching patients about disease process and medications, Family teaching, Provid ing safe environment, Bowel and Bladder Issues, Skin Integrity, and Medication Management Patient/Family Education Providing Safe Environment Skin Integrity PATIENT REQUIRES INTENSIVE, COORDINATED INTERDISCIPLINARY APPROACH TO REHAB: Arranging Home Equipment/Services Discharge Planning Family Intervention/Training Patient needs Dietary and Nutrition Services for: Adequate Nutrition, Nutritional Supplements, and Nu tritional Education Patient needs Entry Analyst and/or Case Management for: Discharge Planning, Arranging Home Equipmen t or Services, and Family Interventions Entry Analyst/Case Management LIST OF IDENTIFIED AND POTENTIAL PROBLEMS: Alteration in leisure activities Bladder, Incontinence Bowel, Incontinence Infection, Actual or Potential Mobility Impaired Pain, Alteration in Comfort Self Care Deficit Skin Integrity, Actual or Potential Urinary Tract Infection (UTI), Actual or Potential RISK FOR COMPLICATIONS - Skin Breakdown Encourage ambulation as tolerated. Nursing will assess skin daily using assessment tool and will plac e on Skin Breakdown Precautions as Indicated per protocol. Use of pillows or foam wedges while in bed . Repositioning q 2 hours. - Falls Patient will be evaluated for Fall Precautions and will be placed on Fall Precautions as indicated pe r protocol. Provide assistance getting out of bed and with ambulation. Provide assistive devices. Ana tabaresdyllan call light within patient reach for easy access to nursing assistance. - WEAKNESS Nursing and therapy will help to get patient stronger. - Pain Educate patient on relaxation and deep breathing techniques. Administer prescribed pain medication as needed. Anticipate the need for pain medication for optimal pain managment. - Stroke Assess/ Monitor and maintain patient pain level. Assess/ Monitor patient blood pressure. - DVT Active and Passive ROM exercises. Assist patient with frequent position changes. Elevate BLE. INTERVENTIONS - DEPRESSION Patient will continue with administered medications per MD. - Hypertension Promote regular physical activity. Assess/ Monitor patient B/P and treat with prescribed medications. Implement healthy diet. Maintain SBP <150. - Pain Non pharmacological pain management. Monitor for headaches. Educate pt on relaxation techniques and d eep breathing. Assess/Monitor pt pain and treat with prescribed pain medications. - Wound care Baci TID for 1 week, TID thereafter. PATIENT COULD BE AT RISK FOR COMPLICATIONS FROM ADVERSE MEDICAL CONDITIONS DUE TO HIS/HER COMORBIDITI ES AND THE RIGORS OF THE INTENSIVE REHABILLITATION PROGRAM. METHODS OR INTERVENTIONS TO AVOID COMPLIC ATIONS INCLUDE: - Bleeding Assess lab values and manage abnormalities. Nursing to teach precautions for anti-coagulation therapy . Wound to be assessed every shift. - Infection Clinical staff to assess and manage the signs and symptoms of infection including fever, redness, war mth, etc. - Urinary Tract Infection - Falls Patient will be evaluated for Fall Precautions and will be placed on Fall Precautions as indicated pe r protocol. - Skin Breakdown Nursing will assess skin daily using assessment tool and will place on Skin Breakdown Precautions as indicated per protocol. - Pain Clinical staff may employ non-medication methods such as massage, distraction, decrease stimulus, etc . as needed. Clinical staff will assess patient's pain level every shift per protocol to assess and e nsure pain management effectiveness. Medications will be given and the pain level re-assessed. PRELIMINARY PLAN OF CARE: - Physical Therapy Patient needs Physical Therapy for a daily minimum of 1.5 hours at least 5 out of 7 days, to improve: Mobility, Strengthening, Transfers, Stretching, ROM, Endurance, Ability to manage stairs, Gait, and Balance. - Speech Therapy Patient needs Speech Therapy for a daily minimum of 0.5 hours at least 5 out of 7 days, to improve: S wallowing, Cognition, Language Skills, and Compensatory Strategies. - Rehabilitation Nursing Patient requires 24x7 Rehabilitation Nursing for: Pain Issues, Identifying and preventing risk factor s, Monitoring and reporting current medical conditions, Assisting with ambulation and transfer, Amor ting with all ADL-s, Teaching patients about disease process and medications, Family teaching, Provid ing safe environment, Bowel and Bladder Issues, Skin Integrity, and Medication Management. Patient needs Entry Analyst and/or Case Management for: Discharge Planning, Arranging Home Equipmen t or Services, and Family Interventions. - Dietary and Nutrition Services Patient needs Dietary and Nutrition Services for: Adequate Nutrition, Nutritional Supplements, and Nu tritional Education. - Occupational Therapy Patient needs Occupational Therapy for a daily minimum of 1.5 hours at least 5 out of 7 days, to impr ove Activities of Daily Living, including: Eating, Grooming, Bathing, Dressing, Toileting, Toilet Tra nsfers, Community Reintegration, Higher functional activities, Adaptive Equipment, Splinting, Househo ld Tasks, and Other activities as determined. QI SCORES: - Self-Care A. Eating 03-Partial/moderate assistance B. Oral hygiene 03-Partial/moderate assistance C. Toileting hygiene 03-Partial/moderate assistance E. Shower/bathe self 03-Partial/moderate assistance F. Upper body dressing 03-Partial/moderate assistance G. Lower body dressing 03-Partial/moderate assistance H. Putting on/taking off footwear 88-Not attempted due to medical condition or safety concerns - Mobility A. Roll left and right 03-Partial/moderate assistance B. Sit to lying 03-Partial/moderate assistance C. Lying to sitting on side of bed 03-Partial/moderate assistance D. Sit to stand 03-Partial/moderate assistance E. Chair/clp-ap-jnqzf transfer 03-Partial/moderate assistance F. Toilet transfer 03-Partial/moderate assistance G. Car transfer 88-Not attempted due to medical condition or safety concerns I. Walk 10 feet 88-Not attempted due to medical condition or safety concerns J. Walk 50 feet with two turns 88-Not attempted due to medical condition or safety concerns K. Walk 150 feet 88-Not attempted due to medical condition or safety concerns L. Walking 10 feet on uneven surfaces 88-Not attempted due to medical condition or safety concerns M. 1 step (curb) 88-Not attempted due to medical condition or safety concerns N. 4 steps 88-Not attempted due to medical condition or safety concerns O. 12 steps 88-Not attempted due to medical condition or safety concerns P. Picking up object 88-Not attempted due to medical condition or safety concerns R. Wheel 50 feet with two turns 88-Not attempted due to medical condition or safety concerns S. Wheel 150 feet 88-Not attempted due to medical condition or safety concerns - Bladder and Bowel Bladder continence Bowel continence - Endurance Fair - Balance Fair - Safety Awareness Fair POTENTIAL FUNCTIONAL GOALS FOR PATIENT TO ACHIEVE BY DISCHARGE: - Safety Precaution Patient will remain free from falls or injury at time of discharge. - Bed Mobility Patient will perform bed mobility at 4-Davis level of assistance. - Transfers Patient will complete transfers from bed to chair at 4-Davis level of assistance. - Mobility Patient will ambulate 150 ft with 4-Davis level of assistance with RW. PATIENT REHAB POTENTIAL Naye FERRELL is able and expected to receive 3 hours of individualized therapy daily on at least 5 of every 7 days Naye FERRELL's prognosis for significant practical improvement within a reasonable period of time a ppears Good Expected level of measurable improvement will be of a practical value to Naye FERRELL's functional capacity or adaptations to impairments Has a viable Discharge Plan Medically appropriate; condition is sufficiently stable to participate in intensive rehab program DISCHARGE PLAN: - Estimated Length of Stay (days) 13. - Consensus on plan Discharge plan has been discussed with primary caregiver. Patient/Family is in agreement with the heavenly n. Primary caregiver is in agreement with the plan. - Patient/Family Goals Return home independently. - Planned Living Setting Upon Discharge Home, to live with Family/Relatives. Transitional Living. CONCLUSION ON REHABILITATION NECESSITY: I have evaluated patient's pre-admission functional status and, comparing it to the patient's post-ad mission functional status now, I conclude that the pre-admission assessment was accurate. Patient's c ondition on admission supports the medical necessity of admission to [facility]. It is safe to proceed with patient's therapy program. SIGNATURE PANEL: (CDT)
[2021-09-07] MEDS ORDERED: DOCUSATE NA/SENNA CONC 1 TAB PO PRN (14:53)
[2021-09-07 16:44] LABS: Urine Appearance Cloudy (Clear); Urine Blood Trace-intact (Negative); Urine Color Yellow (Yellow); Urine Glucose Negative (Negative); Urine Protein Negative (Negative); Urine pH 7.5 (5.0-7.0)
[2021-09-07 16:55] LABS: Urine Bacteria <20 /HPF (<20); Urine Mucus 2+ /HPF (NONE SEEN); Urine RBC <5 /HPF (NONE SEEN)
[2021-09-07 16:58] LABS: Urine Bilirubin 1+ (Negative)
[2021-09-07] MEDS: MELATONIN 3 MG TABLET PO SCH (21:11)
[2021-09-07] MEDS: GABAPENTIN 100 MG CAP PO SCH (21:12)
[2021-09-07] MEDS: TRAZODONE 50 MG TABLET PO PRN (21:13)
[2021-09-08] MEDS: methocarbamoL 500 MG TAB PO SCH ×3 (04:21→20:37)
[2021-09-08] MEDS: METOCLOPRAMIDE 5 MG TAB PO SCH ×4 (06:57→20:36)
[2021-09-08] MEDS: BACITRACIN OINTMENT 14 GM TUBE TOP SCH ×3 (06:57→20:36)
[2021-09-08] MEDS: NICOTINE 14 MG/PAT TD SCH (06:57)
[2021-09-08] MEDS: LIDOCAINE 4% TOP SOLUTION MM SCH (06:58)
[2021-09-08] MEDS: SOD CHLORIDE 0.65% NASAL SPRAY NAS PRN ×2 (06:58→14:14)
[2021-09-08] MEDS: CETIRIZINE HCL 5 MG TABLET PO SCH (07:35)
[2021-09-08] MEDS: THIAMINE HCL 100 MG TABLET PO SCH (07:35)
[2021-09-08] MEDS: levETIRAcetam 500 MG TAB PO SCH ×2 (07:36→20:37)
[2021-09-08] MEDS: GABAPENTIN 100 MG CAP PO SCH ×2 (07:36→20:37)
[2021-09-08] MEDS: POTASSIUM 25 MEQ EFFERV TAB PO SCH (07:36)
[2021-09-08] MEDS: MAGNESIUM OXIDE 400 MG TAB PO SCH ×2 (07:36→20:36)
[2021-09-08] MEDS: FOLIC ACID 1 MG TABLET PO SCH (07:36)
[2021-09-08] MEDS: MULTIVITAMIN TAB PO SCH (07:36)
[2021-09-08] MEDS: DOCUSATE NA 100 MG CAP PO SCH ×2 (07:36→20:36)
[2021-09-08] MEDS: DRONABINOL 2.5 MG PO SCH ×2 (09:00→20:38)
[2021-09-08] MEDS ORDERED: MAGNESIUM SULFATE 1 gm IVPB 1 GM/100 ML BAG IV ONE ×2 (09:02→10:26)
[2021-09-08] MEDS: BISACODYL 10 MG RECTAL SUPP PR SCH (11:32)
[2021-09-08] MEDS: CODEINE 30MG/APAP 300MG TAB PO PRN (17:54)
[2021-09-08] MEDS: TRAZODONE 50 MG TABLET PO PRN (20:36)
[2021-09-08] MEDS: MELATONIN 3 MG TABLET PO SCH (20:36)
[2021-09-08] MEDS: ENSURE ENLIVE 237 ML CAN PO SCH (20:37)
[2021-09-08] MEDS: CRANBERRY FRUIT EXTRACT 400 MG CAP PO SCH (20:37)
[2021-09-09] MEDS: methocarbamoL 500 MG TAB PO SCH ×3 (03:43→21:12)
[2021-09-09] MEDS: METOCLOPRAMIDE 5 MG TAB PO SCH ×4 (07:30→21:00)
[2021-09-09] MEDS: levETIRAcetam 500 MG TAB PO SCH ×2 (07:49→21:12)
[2021-09-09] MEDS: THIAMINE HCL 100 MG TABLET PO SCH (07:49)
[2021-09-09] MEDS: POTASSIUM 25 MEQ EFFERV TAB PO SCH (07:49)
[2021-09-09] MEDS: FOLIC ACID 1 MG TABLET PO SCH (07:49)
[2021-09-09] MEDS: CRANBERRY FRUIT EXTRACT 400 MG CAP PO SCH ×2 (07:49→21:12)
[2021-09-09] MEDS: NICOTINE 14 MG/PAT TD SCH (07:50)
[2021-09-09] MEDS: CODEINE 30MG/APAP 300MG TAB PO PRN (07:50)
[2021-09-09] MEDS: MAGNESIUM OXIDE 400 MG TAB PO SCH ×2 (07:51→21:12)
[2021-09-09] MEDS: MULTIVITAMIN TAB PO SCH (07:51)
[2021-09-09] MEDS: DOCUSATE NA 100 MG CAP PO SCH ×3 (07:51→21:11)
[2021-09-09] MEDS: BACITRACIN OINTMENT 14 GM TUBE TOP SCH ×3 (07:51→21:13)
[2021-09-09] MEDS: GABAPENTIN 100 MG CAP PO SCH ×2 (07:52→21:12)
[2021-09-09] MEDS: CETIRIZINE HCL 5 MG TABLET PO SCH (07:52)
[2021-09-09] MEDS: ENSURE ENLIVE 237 ML CAN PO SCH ×2 (07:52→21:12)
[2021-09-09] MEDS: BISACODYL 10 MG RECTAL SUPP PR SCH (07:52)
[2021-09-09] MEDS: LIDOCAINE 4% TOP SOLUTION MM SCH (07:53)
[2021-09-09] MEDS: DRONABINOL 2.5 MG PO SCH ×2 (07:53→21:00)
[2021-09-09] MEDS: MELATONIN 3 MG TABLET PO SCH (21:00)
[2021-09-10] MEDS: methocarbamoL 500 MG TAB PO SCH ×3 (04:18→20:16)
[2021-09-10] MEDS: ACETAMINOPHEN 325 MG TABLET PO PRN ×2 (06:06→17:12)
[2021-09-10] MEDS: METOCLOPRAMIDE 5 MG TAB PO SCH ×4 (07:30→20:15)
[2021-09-10] MEDS: NICOTINE 14 MG/PAT TD SCH (08:00)
[2021-09-10] MEDS: BACITRACIN OINTMENT 14 GM TUBE TOP SCH ×3 (09:00→20:17)
[2021-09-10] MEDS: DRONABINOL 2.5 MG PO SCH ×2 (09:00→20:17)
[2021-09-10] MEDS: CRANBERRY FRUIT EXTRACT 400 MG CAP PO SCH ×2 (09:18→20:15)
[2021-09-10] MEDS: DOCUSATE NA 100 MG CAP PO SCH (09:18)
[2021-09-10] MEDS: CETIRIZINE HCL 5 MG TABLET PO SCH (09:18)
[2021-09-10] MEDS: GABAPENTIN 100 MG CAP PO SCH ×2 (09:18→20:15)
[2021-09-10] MEDS: POTASSIUM 25 MEQ EFFERV TAB PO SCH (09:18)
[2021-09-10] MEDS: MULTIVITAMIN TAB PO SCH (09:19)
[2021-09-10] MEDS: THIAMINE HCL 100 MG TABLET PO SCH (09:19)
[2021-09-10] MEDS: levETIRAcetam 500 MG TAB PO SCH ×2 (09:20→20:15)
[2021-09-10] MEDS: FOLIC ACID 1 MG TABLET PO SCH (09:20)
[2021-09-10] MEDS: MAGNESIUM OXIDE 400 MG TAB PO SCH ×2 (09:20→20:16)
[2021-09-10] MEDS: ENSURE ENLIVE 237 ML CAN PO SCH ×2 (11:17→20:00)
[2021-09-10] MEDS: BISACODYL 10 MG RECTAL SUPP PR SCH (11:17)
[2021-09-10] MEDS: LIDOCAINE 4% TOP SOLUTION MM SCH (11:18)
--- NOTE | 2021-09-10 11:44 | R.PN ---
PROGRESS NOTES ENCOUNTER DATE AND TIME: 09/09/20211999 NAME ALICIA FERRELL DATE OF : 1950 DATE OF ADMISSION: 09/07/2021 14:36 (CDT) ACUTE RIGHT SIDED SUBDURAL HEMATOMASUBJECTIVE: Pt denied any depression. Pt denied any Shortness of Breath. VITAL SIGNS Temperature: 97.4 F SBP/DBP: 176/70 Pulse: 82 Resp: 16 MEDICATION ALLERGIES: No Known Drug Allergies (NKDA) ENVIRONMENTAL ALLERGIES: - Substance Allergies None Known - Other Allergies None Known NURSING: - Shower allowing shower - Bladder care per protocol - Skin care per protocol PRECAUTIONS: - Fall Precaution 1 to 1 supervision ACTIVITIES OOB only with supervision THERAPIES: - Dietary and Nutrition Adequate Nutrition. Nutritional Education. Nutritional Supplements. Evaluate and Treat. - Occupational Therapy Cognitive Retraining. Patient needs Occupational Therapy for a daily minimum of 1.5 hours at least 5 out of 7 days, to improve Activities of Daily Living, including: Eating, Grooming, Bathing, Dressing, Toileting, Toilet Transfers, Community Reintegration, Higher functional activities, Adaptive Equipme nt, Splinting, Household Tasks, and Other activities as determined. Visual Perceptual Training. Evalu ate and Treat. Safety Awareness. ADL Training. Transfer Training. Household Tasks. Adaptive Equipment . UE Strengthening. Patient/Family Education. - Speech Therapy Cognitive Training. Expressive Language Skills. Memory Strategies. Patient needs Speech Therapy for a daily minimum of 1.5 hours at least 5 out of 7 days, to improve: Swallowing, Cognition, Language Ski lls, and Compensatory Strategies. Receptive Language Skills. Speech Intelligibility Training. Evaluat e and Treat. - Physical Therapy Patient needs Physical Therapy for a daily minimum of 1.5 hours at least 5 out of 7 days, to improve: Mobility, Strengthening, Transfers, Stretching, ROM, Endurance, Ability to manage stairs, Gait, and Balance. Evaluate and Treat. Balance Training. Gait Training. Safety Awareness. Transfer Training. Pa tient/Family Education. LE Strengthening. Modalities Training. PHYSICAL EXAM - Gen Alert and awake Lying in bed No apparent distress Oriented to: person, time, and place - Skin Bruising on arms and forearms. Bilateral facial bruising, sutures in left upper lip - Eyes Hematoma around both eyes with injected sclera. - ENMT [place] J cervical collar is in place - Neck [place] cervical collar is in place. - CVS RRR - Chest No abnormalities - Resp No wheezing - Abd Soft - GI Non distended Deferred - No abnormalities - Ext No significant edema - MSK 4/5 weakness in both lower extremities. - Neuro 4/5 strength bilaterally upper and lower extremities. - Psych Mild anxiety. ASSESSMENT: Pt. is a 71 yo Right-handed female.On 08/31/2021 she was admitted to [facility] with diagnosis ACUTE RIGHT SIDED SUBDURAL HEMATOMA.Her impairment category is Brain Dysfunction 02 - Closed Injury (05.17).Pre-morbidly, Pt. was independent/mod-I in Locomotion, Safety Awareness, Social Cognition, Ba jessa, and Transfers Control; and she had good Sphincter Control, Self-Care, Communication, and Endur ance.Currently, she has deficits of Locomotion, Social Cognition, Safety Awareness, Balance, Transfer s Control, Sphincter Control, Self-Care, Communication, and Endurance.Pt. is now referred to [facility] for acute in-patient rehabilitation in order to maximize patient's function al independence in activities of daily living, strength, ROM, and mobility.- Rehab Goal Patient has realistic goal of being discharged at assistance level 7-Ind to reside at Home with Fami ly/Relatives. MDM/PLAN: - Physical Therapy Gait dysfunction - to improve, our physical therapists will perform initial evaluation of pt's statu s upon admission and devise an individualized program for Gait Training, and Wheel Chair mobility Inability to transfer - to improve, our physical therapists will perform initial evaluation of pt's status upon admission and devise an individualized program for Bed mobility Need for home safety evaluation - to improve, our physical therapists will perform initial evaluatio n of pt's status upon admission and devise an individualized program for Home Evaluation Need in caregiver upon discharge - to improve, our physical therapists will perform initial evaluati on of pt's status upon admission and devise an individualized program for Caregiver Training New precaution - to improve, our physical therapists will perform initial evaluation of pt's status upon admission and devise an individualized program for Patient precaution education Edema - to improve, our physical therapists will perform initial evaluation of pt's status upon admi ssion and devise an individualized program for Elevation Training, and Lymphedema Therapy Poor balance - to improve, our physical therapists will perform initial evaluation of pt's status up on admission and devise an individualized program for Balance Training Poor endurance - to improve, our physical therapists will perform initial evaluation of pt's status upon admission and devise an individualized program for Endurance Training Weakness - to improve, our physical therapists will perform initial evaluation of pt's status upon a dmission and devise an individualized program for Aquatic Therapy, Neuromuscular Reeducation, and Str engthening Achieving independence - to improve, our physical therapists will perform initial evaluation of pt's status upon admission and devise an individualized program for Community Reintegration Activities - Occupational Therapy ADL deficits - to improve, our occupation therapists will perform initial evaluation of pt's status upon admission and devise an individualized program for Bathing, Bed mobility, Community Reintegratio n, Cooking, Dressing, Eating, Fine Motor Skills, Grooming, Homemaking, Kitchen Mobility, Laundry, Pat ient Education, Safety Awareness, Splinting - Positioning, Transfers(Toilet, Tub, Shower), and Wheel Chair Management Cognitive deficits - to improve, our occupation therapists will perform initial evaluation of pt's s tatus upon admission and devise an individualized program for Cognition - orientation Need for director medicare sales - to improve, our occupation therapists will perform initial evaluation of pt's status upon admission and devise an individualized program for Caregiver Training Weakness - to improve, our occupation therapists will perform initial evaluation of pt's status upon admission and devise an individualized program for Aquatic Therapy, Balance, Endurance, UE ROM, and UE strengthening - Other See attached MAR (Medication Administration Record) - Diet Type Continue Regular - Diet - Liquid Texture Continue Regular - Tube Feed Continue N/A - Bladder care per protocol - Fall Precaution 1 to 1 supervision - Skin care per protocol - Diet - Solid Texture Continue Regular - Shower allowing shower FUNCTIONAL STATUS: UPDATED AT WEEKLY TEAM CONFERENCE - Bladder Same accident frequency: 7-Ind - No accidents in the past 7 days - Bowel Same accident frequency: 7-Ind - No accidents in the past 7 days - Walking Same score based on distance walked: 0(N/A) Same score based on distance walked: 1(<=50ft) - Wheelchair Same score based on distance traveled: 0(N/A) FUNCTIONAL STATUS: - Self-Care A. Eating Ind B. Grooming Ind C. Bathing Ind D. Dressing - Upper Ind E. Dressing - Lower Ind F. Toileting Ind - Sphincter Control G. Bladder control Ind H. Bowel control Ind - Transfers Control I. Bed/Chair/Wheelchair Ind J. Toilet Ind K. Tub/Shower Ind - Locomotion L. Walk/Wheelchair (W) Ind M. Stairs Ind - Social Cognition P. Social Interaction Ind Q. Problem Solving Ind R. Memory Ind - Endurance Good - Balance Good - Safety Awareness Good QI SCORES: - Self-Care A. Eating 03-Partial/moderate assistance B. Oral hygiene 03-Partial/moderate assistance C. Toileting hygiene 03-Partial/moderate assistance E. Shower/bathe self 03-Partial/moderate assistance F. Upper body dressing 03-Partial/moderate assistance G. Lower body dressing 03-Partial/moderate assistance H. Putting on/taking off footwear 88-Not attempted due to medical condition or safety concerns - Mobility A. Roll left and right 03-Partial/moderate assistance B. Sit to lying 03-Partial/moderate assistance C. Lying to sitting on side of bed 03-Partial/moderate assistance D. Sit to stand 03-Partial/moderate assistance E. Chair/ohr-su-rdavt transfer 03-Partial/moderate assistance F. Toilet transfer 03-Partial/moderate assistance G. Car transfer 88-Not attempted due to medical condition or safety concerns I. Walk 10 feet 88-Not attempted due to medical condition or safety concerns J. Walk 50 feet with two turns 88-Not attempted due to medical condition or safety concerns K. Walk 150 feet 88-Not attempted due to medical condition or safety concerns L. Walking 10 feet on uneven surfaces 88-Not attempted due to medical condition or safety concerns M. 1 step (curb) 88-Not attempted due to medical condition or safety concerns N. 4 steps 88-Not attempted due to medical condition or safety concerns O. 12 steps 88-Not attempted due to medical condition or safety concerns P. Picking up object 88-Not attempted due to medical condition or safety concerns R. Wheel 50 feet with two turns 88-Not attempted due to medical condition or safety concerns S. Wheel 150 feet 88-Not attempted due to medical condition or safety concerns - Bladder and Bowel Bladder continence Bowel continence - Endurance Fair - Balance Fair - Safety Awareness Fair CURRENT [facility]. DEFICITS: Self-Care, Mobility, Endurance, Balance, and Safety Awareness SIGNATURE PANEL: (CDT)
[2021-09-10] MEDS: DOCUSATE NA 50 MG/5 ML UCUP PO SCH ×2 (20:15→20:16)
[2021-09-10] MEDS: MELATONIN 3 MG TABLET PO SCH (20:16)
[2021-09-11] MEDS: methocarbamoL 500 MG TAB PO SCH ×4 (04:00→19:46)
[2021-09-11 06:23] LABS: Absolute Lymphocytes (CBC) 1.9 K/uL (0.7-4.9); Hematocrit 29.5 % (36.0-45.0); Lymphocytes % 19.1 % (15.3-44.8); MPV 7.4 fL (7.6-11.3); RBC Red Blood Cell Count 2.71 M/uL (3.86-4.86)
[2021-09-11 06:29] LABS: MCV 108.9 fL (80-100)
[2021-09-11 06:33] LABS: Magnesium 1.9 mg/dL (1.8-2.4); Potassium 4.1 mmol/L (3.5-5.1)
[2021-09-11] MEDS: METOCLOPRAMIDE 5 MG TAB PO SCH ×4 (07:29→19:47)
[2021-09-11] MEDS: BISACODYL 10 MG RECTAL SUPP PR SCH (08:00)
[2021-09-11] MEDS: DOCUSATE NA 50 MG/5 ML UCUP PO SCH ×2 (08:00→19:47)
[2021-09-11] MEDS ORDERED: BISACODYL 10 MG RECTAL SUPP PR PRN (08:06)
[2021-09-11] MEDS: CETIRIZINE HCL 5 MG TABLET PO SCH (08:07)
[2021-09-11] MEDS: GABAPENTIN 100 MG CAP PO SCH ×2 (08:08→19:45)
[2021-09-11] MEDS: MULTIVITAMIN TAB PO SCH (08:08)
[2021-09-11] MEDS: CRANBERRY FRUIT EXTRACT 400 MG CAP PO SCH ×2 (08:08→19:45)
[2021-09-11] MEDS: POTASSIUM 25 MEQ EFFERV TAB PO SCH (08:09)
[2021-09-11] MEDS: FOLIC ACID 1 MG TABLET PO SCH (08:09)
[2021-09-11] MEDS: levETIRAcetam 500 MG TAB PO SCH ×2 (08:09→19:46)
[2021-09-11] MEDS: THIAMINE HCL 100 MG TABLET PO SCH (08:09)
[2021-09-11] MEDS: ACETAMINOPHEN 325 MG TABLET PO PRN (08:09)
[2021-09-11] MEDS: BACITRACIN OINTMENT 14 GM TUBE TOP SCH ×3 (08:24→19:47)
[2021-09-11] MEDS: NICOTINE 14 MG/PAT TD SCH (08:25)
[2021-09-11] MEDS: LIDOCAINE 4% TOP SOLUTION MM SCH (08:25)
[2021-09-11] MEDS: MAGNESIUM OXIDE 400 MG TAB PO SCH (08:26)
[2021-09-11] MEDS: ENSURE ENLIVE 237 ML CAN PO SCH ×2 (08:26→20:00)
[2021-09-11] MEDS: DRONABINOL 2.5 MG PO SCH ×2 (09:00→19:47)
[2021-09-11] MEDS: MELATONIN 3 MG TABLET PO SCH (19:46)
[2021-09-12] MEDS: methocarbamoL 500 MG TAB PO SCH ×3 (04:31→19:33)
[2021-09-12] MEDS: BACITRACIN OINTMENT 14 GM TUBE TOP SCH ×3 (07:25→19:32)
[2021-09-12] MEDS: LIDOCAINE 4% TOP SOLUTION MM SCH (07:25)
[2021-09-12] MEDS: DOCUSATE NA 50 MG/5 ML UCUP PO SCH ×3 (07:26→20:00)
[2021-09-12] MEDS: SOD CHLORIDE 0.65% NASAL SPRAY NAS PRN ×3 (07:26→20:20)
[2021-09-12] MEDS: ENSURE ENLIVE 237 ML CAN PO SCH ×2 (07:27→19:34)
[2021-09-12] MEDS: ACETAMINOPHEN 325 MG TABLET PO PRN (07:28)
[2021-09-12] MEDS: METOCLOPRAMIDE 5 MG TAB PO SCH ×4 (07:28→19:34)
[2021-09-12] MEDS: MULTIVITAMIN TAB PO SCH (07:30)
[2021-09-12] MEDS: levETIRAcetam 500 MG TAB PO SCH ×2 (07:30→19:33)
[2021-09-12] MEDS: CETIRIZINE HCL 5 MG TABLET PO SCH (07:30)
[2021-09-12] MEDS: GABAPENTIN 100 MG CAP PO SCH (07:30)
[2021-09-12] MEDS: THIAMINE HCL 100 MG TABLET PO SCH (07:30)
[2021-09-12] MEDS: CRANBERRY FRUIT EXTRACT 400 MG CAP PO SCH ×2 (07:30→19:33)
[2021-09-12] MEDS: POTASSIUM 25 MEQ EFFERV TAB PO SCH (07:30)
[2021-09-12] MEDS: FOLIC ACID 1 MG TABLET PO SCH (07:31)
[2021-09-12] MEDS: MAGNESIUM CHLORIDE 64 MG TAB PO SCH (07:33)
[2021-09-12] MEDS: DRONABINOL 2.5 MG PO SCH ×2 (08:50→19:34)
[2021-09-12] MEDS: NICOTINE 14 MG/PAT TD SCH (10:21)
[2021-09-12] MEDS ORDERED: clonazePAM 0.5 MG TAB PO PRN (13:49)
--- NOTE | 2021-09-12 14:58 | RAD REPORT ---
EXAM DESCRIPTION: CT - Head Brain Wo Cont - 09/12/2021 2:18 pm CLINICAL HISTORY: Comparison COMPARISON: Head Brain Wo Cont dated 05/31/2017 TECHNIQUE: All CT scans are performed using dose optimization technique as appropriate and may inclu de automated exposure control or mA/KV adjustment according to patient size. FINDINGS: Small focus of extra-axial hyperdensity along the right frontal lobe. See image 20, series 3. This could represent a small volume of subdural hemorrhage.No areas of brain edema or evidence of midline shift. Cerebral atrophy The paranasal sinuses and mastoids are clear. The calvarium is intact. Bilateral mildly displaced tavares al bone fractures. These are age-indeterminate. IMPRESSION: Extra-axial hyperdensity along the right frontal lobe could represent trace acute subdur al hematoma. By clinical history, the patient has a recent diagnosis of subdural hematoma. Age indete rminate bilateral nasal bone fractures. No skull fracture. Finding called to Dr. Benitez by Dr. Alcantar at approximately [id number] on 09/12/21
--- NOTE | 2021-09-12 18:10 | R.PN ---
PROGRESS NOTES ENCOUNTER DATE AND TIME: 09/12/2021 18:04 (CDT) NAME ALICIA FERRELL DATE OF : 1950 DATE OF ADMISSION: 09/07/2021 14:36 (CDT) ACUTE RIGHT SIDED SUBDURAL HEMATOMACHIEF COMPLAINT: Right frontal subdural hematoma. SUBJECTIVE: Pt denied any depression. Pt denied any Shortness of Breath. Ambulated 1250' with SBA using a rolling walker. Up and down 20 steps with SBA. Self-propelled wheel chair 750' with SBA. WBC 10.0, Hgb 10.0, Mg 1.9, Ca 9.1, K 4.1, prealbumin 11.4. VITAL SIGNS Temperature: 97.6 F SBP/DBP: 151/77 Pulse: 79 Resp: 16 MEDICATION ALLERGIES: No Known Drug Allergies (NKDA) ENVIRONMENTAL ALLERGIES: - Substance Allergies None Known - Other Allergies None Known NURSING: - Shower allowing shower - Bladder care per protocol - Skin care per protocol PRECAUTIONS: - Fall Precaution 1 to 1 supervision ACTIVITIES OOB only with supervision THERAPIES: - Dietary and Nutrition Adequate Nutrition. Nutritional Education. Nutritional Supplements. Evaluate and Treat. - Occupational Therapy Cognitive Retraining. Patient needs Occupational Therapy for a daily minimum of 1.5 hours at least 5 out of 7 days, to improve Activities of Daily Living, including: Eating, Grooming, Bathing, Dressing, Toileting, Toilet Transfers, Community Reintegration, Higher functional activities, Adaptive Equipme nt, Splinting, Household Tasks, and Other activities as determined. Visual Perceptual Training. Evalu ate and Treat. Safety Awareness. ADL Training. Transfer Training. Household Tasks. Adaptive Equipment . UE Strengthening. Patient/Family Education. - Speech Therapy Cognitive Training. Expressive Language Skills. Memory Strategies. Patient needs Speech Therapy for a daily minimum of 1.5 hours at least 5 out of 7 days, to improve: Swallowing, Cognition, Language Ski lls, and Compensatory Strategies. Receptive Language Skills. Speech Intelligibility Training. Evaluat e and Treat. - Physical Therapy Patient needs Physical Therapy for a daily minimum of 1.5 hours at least 5 out of 7 days, to improve: Mobility, Strengthening, Transfers, Stretching, ROM, Endurance, Ability to manage stairs, Gait, and Balance. Evaluate and Treat. Balance Training. Gait Training. Safety Awareness. Transfer Training. Pa tient/Family Education. LE Strengthening. Modalities Training. PHYSICAL EXAM - Gen Alert and awake Lying in bed No apparent distress Oriented to: person, time, and place - Skin Bruising on arms and forearms. Bilateral facial bruising, sutures in left upper lip - Eyes Hematoma around both eyes with injected sclera. - ENMT [place] J cervical collar is in place - Neck [place] J cervical collar is in place. - CVS RRR - Chest No abnormalities - Resp No wheezing - Abd Soft - GI Non distended Deferred - No abnormalities - Ext No significant edema - MSK 4/5 weakness in both lower extremities. - Neuro 4/5 strength bilaterally upper and lower extremities. - Psych Mild anxiety. ASSESSMENT: Pt. is a 71 yo Right-handed female.On 08/31/2021 she was admitted to [facility] with diagnosis ACUTE RIGHT SIDED SUBDURAL HEMATOMA.Her impairment category is Brain Dysfunction 02 - Closed Injury (05.17).Pre-morbidly, Pt. was independent/mod-I in Locomotion, Safety Awareness, Social Cognition, Ba jessa, and Transfers Control; and she had good Sphincter Control, Self-Care, Communication, and Endur ance.Currently, she has deficits of Locomotion, Social Cognition, Safety Awareness, Balance, Transfer s Control, Sphincter Control, Self-Care, Communication, and Endurance.Pt. is now referred to [facility] for acute in-patient rehabilitation in order to maximize patient's function al independence in activities of daily living, strength, ROM, and mobility.- Rehab Goal Patient has realistic goal of being discharged at assistance level 7-Ind to reside at Home with Fami ly/Relatives. - Physical Therapy Gait dysfunction - to improve, our physical therapists will perform initial evaluation of pt's statu s upon admission and devise an individualized program for Gait Training, and Wheel Chair mobility Inability to transfer - to improve, our physical therapists will perform initial evaluation of pt's status upon admission and devise an individualized program for Bed mobility Need for home safety evaluation - to improve, our physical therapists will perform initial evaluatio n of pt's status upon admission and devise an individualized program for Home Evaluation Need in caregiver upon discharge - to improve, our physical therapists will perform initial evaluati on of pt's status upon admission and devise an individualized program for Caregiver Training New precaution - to improve, our physical therapists will perform initial evaluation of pt's status upon admission and devise an individualized program for Patient precaution education Edema - to improve, our physical therapists will perform initial evaluation of pt's status upon admi ssion and devise an individualized program for Elevation Training, and Lymphedema Therapy Poor balance - to improve, our physical therapists will perform initial evaluation of pt's status up on admission and devise an individualized program for Balance Training Poor endurance - to improve, our physical therapists will perform initial evaluation of pt's status upon admission and devise an individualized program for Endurance Training Weakness - to improve, our physical therapists will perform initial evaluation of pt's status upon a dmission and devise an individualized program for Aquatic Therapy, Neuromuscular Reeducation, and Str engthening Achieving independence - to improve, our physical therapists will perform initial evaluation of pt's status upon admission and devise an individualized program for Community Reintegration Activities - Occupational Therapy ADL deficits - to improve, our occupation therapists will perform initial evaluation of pt's status upon admission and devise an individualized program for Bathing, Bed mobility, Community Reintegratio n, Cooking, Dressing, Eating, Fine Motor Skills, Grooming, Homemaking, Kitchen Mobility, Laundry, Pat ient Education, Safety Awareness, Splinting - Positioning, Transfers(Toilet, Tub, Shower), and Wheel Chair Management Cognitive deficits - to improve, our occupation therapists will perform initial evaluation of pt's s tatus upon admission and devise an individualized program for Cognition - orientation Need for patient care specialist - to improve, our occupation therapists will perform initial evaluation of pt's status upon admission and devise an individualized program for Caregiver Training Weakness - to improve, our occupation therapists will perform initial evaluation of pt's status upon admission and devise an individualized program for Aquatic Therapy, Balance, Endurance, UE ROM, and UE strengthening - Other See attached MAR (Medication Administration Record) - Diet Type Continue Regular - Diet - Liquid Texture Continue Regular - Tube Feed Continue N/A - Bladder care per protocol - Fall Precaution 1 to 1 supervision - Skin care per protocol - Diet - Solid Texture Continue Regular - Shower allowing shower FUNCTIONAL STATUS: UPDATED AT WEEKLY TEAM CONFERENCE - Bladder Same accident frequency: 7-Ind - No accidents in the past 7 days - Bowel Same accident frequency: 7-Ind - No accidents in the past 7 days - Walking Same score based on distance walked: 0(N/A) Same score based on distance walked: 1(<=50ft) - Wheelchair Same score based on distance traveled: 0(N/A) FUNCTIONAL STATUS: - Self-Care A. Eating Ind B. Grooming Ind C. Bathing Ind D. Dressing - Upper Ind E. Dressing - Lower Ind F. Toileting Ind - Sphincter Control G. Bladder control Ind H. Bowel control Ind - Transfers Control I. Bed/Chair/Wheelchair Ind J. Toilet Ind K. Tub/Shower Ind - Locomotion L. Walk/Wheelchair (W) Ind M. Stairs Ind - Social Cognition P. Social Interaction Ind Q. Problem Solving Ind R. Memory Ind - Endurance Good - Balance Good - Safety Awareness Good QI SCORES: - Self-Care A. Eating 03-Partial/moderate assistance B. Oral hygiene 03-Partial/moderate assistance C. Toileting hygiene 03-Partial/moderate assistance E. Shower/bathe self 03-Partial/moderate assistance F. Upper body dressing 03-Partial/moderate assistance G. Lower body dressing 03-Partial/moderate assistance H. Putting on/taking off footwear 88-Not attempted due to medical condition or safety concerns - Mobility A. Roll left and right 03-Partial/moderate assistance B. Sit to lying 03-Partial/moderate assistance C. Lying to sitting on side of bed 03-Partial/moderate assistance D. Sit to stand 03-Partial/moderate assistance E. Chair/obs-on-kvxlh transfer 03-Partial/moderate assistance F. Toilet transfer 03-Partial/moderate assistance G. Car transfer 88-Not attempted due to medical condition or safety concerns I. Walk 10 feet 88-Not attempted due to medical condition or safety concerns J. Walk 50 feet with two turns 88-Not attempted due to medical condition or safety concerns K. Walk 150 feet 88-Not attempted due to medical condition or safety concerns L. Walking 10 feet on uneven surfaces 88-Not attempted due to medical condition or safety concerns M. 1 step (curb) 88-Not attempted due to medical condition or safety concerns N. 4 steps 88-Not attempted due to medical condition or safety concerns O. 12 steps 88-Not attempted due to medical condition or safety concerns P. Picking up object 88-Not attempted due to medical condition or safety concerns R. Wheel 50 feet with two turns 88-Not attempted due to medical condition or safety concerns S. Wheel 150 feet 88-Not attempted due to medical condition or safety concerns - Bladder and Bowel Bladder continence Bowel continence - Endurance Fair - Balance Fair - Safety Awareness Fair CURRENT [facility]. DEFICITS: Self-Care, Mobility, Endurance, Balance, and Safety Awareness SIGNATURE PANEL: (CDT)
[2021-09-12] MEDS: MELATONIN 3 MG TABLET PO SCH (19:32)
[2021-09-12] MEDS: GABAPENTIN 300 MG CAP PO SCH (19:33)
[2021-09-12] MEDS: CODEINE 30MG/APAP 300MG TAB PO PRN (20:18)
[2021-09-13] MEDS: methocarbamoL 500 MG TAB PO SCH ×3 (04:55→18:45)
[2021-09-13] MEDS: MAGNESIUM CHLORIDE 64 MG TAB PO SCH (07:07)
[2021-09-13] MEDS: DOCUSATE NA 50 MG/5 ML UCUP PO SCH ×2 (07:07→18:45)
[2021-09-13] MEDS: LIDOCAINE 4% TOP SOLUTION MM SCH (07:07)
[2021-09-13] MEDS: BACITRACIN OINTMENT 14 GM TUBE TOP SCH ×3 (07:07→18:43)
[2021-09-13] MEDS: CRANBERRY FRUIT EXTRACT 400 MG CAP PO SCH ×2 (07:08→18:44)
[2021-09-13] MEDS: levETIRAcetam 500 MG TAB PO SCH ×2 (07:08→18:45)
[2021-09-13] MEDS: MULTIVITAMIN TAB PO SCH (07:08)
[2021-09-13] MEDS: FOLIC ACID 1 MG TABLET PO SCH (07:08)
[2021-09-13] MEDS: THIAMINE HCL 100 MG TABLET PO SCH (07:08)
[2021-09-13] MEDS: GABAPENTIN 300 MG CAP PO SCH ×2 (07:08→18:44)
[2021-09-13] MEDS: CETIRIZINE HCL 5 MG TABLET PO SCH (07:08)
[2021-09-13] MEDS: METOCLOPRAMIDE 5 MG TAB PO SCH ×4 (07:09→18:44)
[2021-09-13] MEDS: ENSURE ENLIVE 237 ML CAN PO SCH ×2 (07:09→18:45)
[2021-09-13] MEDS: NICOTINE 14 MG/PAT TD SCH (07:09)
[2021-09-13] MEDS: ACETAMINOPHEN 325 MG TABLET PO PRN (07:18)
[2021-09-13] MEDS: DRONABINOL 2.5 MG PO SCH ×2 (08:48→18:45)
[2021-09-13] MEDS: SOD CHLORIDE 0.65% NASAL SPRAY NAS PRN (13:00)
[2021-09-13] MEDS: CODEINE 30MG/APAP 300MG TAB PO PRN (16:26)
--- NOTE | 2021-09-13 17:45 | R.PN ---
PROGRESS NOTES ENCOUNTER DATE AND TIME: 09/13/2021 17:40 (CDT) NAME ALICIA FERRELL DATE OF : 1950 DATE OF ADMISSION: 09/07/2021 14:36 (CDT) ACUTE RIGHT SIDED SUBDURAL HEMATOMACHIEF COMPLAINT: Right frontal subdural hematoma. SUBJECTIVE: Pt denied any depression. Pt denied any Shortness of Breath. Ambulated 750' with SBA using a rolling walker. Up and down 15 steps with SBA. WBC 10.0, Hgb 10.0, Mg 1.9, Ca 9.1, K 4.1, prealbumin 11.4. Head CT shows right frontal subdural hematoma and bilateral nasal bone fractures. VITAL SIGNS Temperature: 97.2 F SBP/DBP: 136/61 Pulse: 77 Resp: 16 MEDICATION ALLERGIES: No Known Drug Allergies (NKDA) ENVIRONMENTAL ALLERGIES: - Substance Allergies None Known - Other Allergies None Known NURSING: - Shower allowing shower - Bladder care per protocol - Skin care per protocol PRECAUTIONS: - Fall Precaution 1 to 1 supervision ACTIVITIES OOB only with supervision THERAPIES: - Dietary and Nutrition Adequate Nutrition. Nutritional Education. Nutritional Supplements. Evaluate and Treat. - Occupational Therapy Cognitive Retraining. Patient needs Occupational Therapy for a daily minimum of 1.5 hours at least 5 out of 7 days, to improve Activities of Daily Living, including: Eating, Grooming, Bathing, Dressing, Toileting, Toilet Transfers, Community Reintegration, Higher functional activities, Adaptive Equipme nt, Splinting, Household Tasks, and Other activities as determined. Visual Perceptual Training. Evalu ate and Treat. Safety Awareness. ADL Training. Transfer Training. Household Tasks. Adaptive Equipment . UE Strengthening. Patient/Family Education. - Speech Therapy Cognitive Training. Expressive Language Skills. Memory Strategies. Patient needs Speech Therapy for a daily minimum of 1.5 hours at least 5 out of 7 days, to improve: Swallowing, Cognition, Language Ski lls, and Compensatory Strategies. Receptive Language Skills. Speech Intelligibility Training. Evaluat e and Treat. - Physical Therapy Patient needs Physical Therapy for a daily minimum of 1.5 hours at least 5 out of 7 days, to improve: Mobility, Strengthening, Transfers, Stretching, ROM, Endurance, Ability to manage stairs, Gait, and Balance. Evaluate and Treat. Balance Training. Gait Training. Safety Awareness. Transfer Training. Pa tient/Family Education. LE Strengthening. Modalities Training. PHYSICAL EXAM - Gen Alert and awake Lying in bed No apparent distress Oriented to: person, time, and place - Skin Bruising on arms and forearms. Bilateral facial bruising, sutures in left upper lip - Eyes Hematoma around both eyes with injected sclera. - ENMT [place] cervical collar is in place - Neck [place] cervical collar is in place. - CVS RRR - Chest No abnormalities - Resp No wheezing - Abd Soft - GI Non distended Deferred - No abnormalities - Ext No significant edema - MSK 4/5 weakness in both lower extremities. - Neuro 4/5 strength bilaterally upper and lower extremities. - Psych Mild anxiety. ASSESSMENT: Pt. is a 71 yo Right-handed female.On 08/31/2021 she was admitted to [facility] with diagnosis ACUTE RIGHT SIDED SUBDURAL HEMATOMA.Her impairment category is Brain Dysfunction 02 - Closed Injury (05.17).Pre-morbidly, Pt. was independent/mod-I in Locomotion, Safety Awareness, Social Cognition, Ba jessa, and Transfers Control; and she had good Sphincter Control, Self-Care, Communication, and Endur ance.Currently, she has deficits of Locomotion, Social Cognition, Safety Awareness, Balance, Transfer s Control, Sphincter Control, Self-Care, Communication, and Endurance.Pt. is now referred to [facility] for acute in-patient rehabilitation in order to maximize patient's function al independence in activities of daily living, strength, ROM, and mobility.- Rehab Goal Patient has realistic goal of being discharged at assistance level 7-Ind to reside at Home with Fami ly/Relatives. - Physical Therapy Gait dysfunction - to improve, our physical therapists will perform initial evaluation of pt's statu s upon admission and devise an individualized program for Gait Training, and Wheel Chair mobility Inability to transfer - to improve, our physical therapists will perform initial evaluation of pt's status upon admission and devise an individualized program for Bed mobility Need for home safety evaluation - to improve, our physical therapists will perform initial evaluatio n of pt's status upon admission and devise an individualized program for Home Evaluation Need in caregiver upon discharge - to improve, our physical therapists will perform initial evaluati on of pt's status upon admission and devise an individualized program for Caregiver Training New precaution - to improve, our physical therapists will perform initial evaluation of pt's status upon admission and devise an individualized program for Patient precaution education Edema - to improve, our physical therapists will perform initial evaluation of pt's status upon admi ssion and devise an individualized program for Elevation Training, and Lymphedema Therapy Poor balance - to improve, our physical therapists will perform initial evaluation of pt's status up on admission and devise an individualized program for Balance Training Poor endurance - to improve, our physical therapists will perform initial evaluation of pt's status upon admission and devise an individualized program for Endurance Training Weakness - to improve, our physical therapists will perform initial evaluation of pt's status upon a dmission and devise an individualized program for Aquatic Therapy, Neuromuscular Reeducation, and Str engthening Achieving independence - to improve, our physical therapists will perform initial evaluation of pt's status upon admission and devise an individualized program for Community Reintegration Activities - Occupational Therapy ADL deficits - to improve, our occupation therapists will perform initial evaluation of pt's status upon admission and devise an individualized program for Bathing, Bed mobility, Community Reintegratio n, Cooking, Dressing, Eating, Fine Motor Skills, Grooming, Homemaking, Kitchen Mobility, Laundry, Pat ient Education, Safety Awareness, Splinting - Positioning, Transfers(Toilet, Tub, Shower), and Wheel Chair Management Cognitive deficits - to improve, our occupation therapists will perform initial evaluation of pt's s tatus upon admission and devise an individualized program for Cognition - orientation Need for rn coronary care unit - to improve, our occupation therapists will perform initial evaluation of pt's status upon admission and devise an individualized program for Caregiver Training Weakness - to improve, our occupation therapists will perform initial evaluation of pt's status upon admission and devise an individualized program for Aquatic Therapy, Balance, Endurance, UE ROM, and UE strengthening - Other See attached MAR (Medication Administration Record) - Diet Type Continue Regular - Diet - Liquid Texture Continue Regular - Tube Feed Continue N/A - Bladder care per protocol - Fall Precaution 1 to 1 supervision - Skin care per protocol - Diet - Solid Texture Continue Regular - Shower allowing shower FUNCTIONAL STATUS: UPDATED AT WEEKLY TEAM CONFERENCE - Bladder Same accident frequency: 7-Ind - No accidents in the past 7 days - Bowel Same accident frequency: 7-Ind - No accidents in the past 7 days - Walking Same score based on distance walked: 0(N/A) Same score based on distance walked: 1(<=50ft) - Wheelchair Same score based on distance traveled: 0(N/A) FUNCTIONAL STATUS: - Self-Care A. Eating Ind B. Grooming Ind C. Bathing Ind D. Dressing - Upper Ind E. Dressing - Lower Ind F. Toileting Ind - Sphincter Control G. Bladder control Ind H. Bowel control Ind - Transfers Control I. Bed/Chair/Wheelchair Ind J. Toilet Ind K. Tub/Shower Ind - Locomotion L. Walk/Wheelchair (W) Ind M. Stairs Ind - Social Cognition P. Social Interaction Ind Q. Problem Solving Ind R. Memory Ind - Endurance Good - Balance Good - Safety Awareness Good QI SCORES: - Self-Care A. Eating 03-Partial/moderate assistance B. Oral hygiene 03-Partial/moderate assistance C. Toileting hygiene 03-Partial/moderate assistance E. Shower/bathe self 03-Partial/moderate assistance F. Upper body dressing 03-Partial/moderate assistance G. Lower body dressing 03-Partial/moderate assistance H. Putting on/taking off footwear 88-Not attempted due to medical condition or safety concerns - Mobility A. Roll left and right 03-Partial/moderate assistance B. Sit to lying 03-Partial/moderate assistance C. Lying to sitting on side of bed 03-Partial/moderate assistance D. Sit to stand 03-Partial/moderate assistance E. Chair/[id number] transfer 03-Partial/moderate assistance F. Toilet transfer 03-Partial/moderate assistance G. Car transfer 88-Not attempted due to medical condition or safety concerns I. Walk 10 feet 88-Not attempted due to medical condition or safety concerns J. Walk 50 feet with two turns 88-Not attempted due to medical condition or safety concerns K. Walk 150 feet 88-Not attempted due to medical condition or safety concerns L. Walking 10 feet on uneven surfaces 88-Not attempted due to medical condition or safety concerns M. 1 step (curb) 88-Not attempted due to medical condition or safety concerns N. 4 steps 88-Not attempted due to medical condition or safety concerns O. 12 steps 88-Not attempted due to medical condition or safety concerns P. Picking up object 88-Not attempted due to medical condition or safety concerns R. Wheel 50 feet with two turns 88-Not attempted due to medical condition or safety concerns S. Wheel 150 feet 88-Not attempted due to medical condition or safety concerns - Bladder and Bowel Bladder continence Bowel continence - Endurance Fair - Balance Fair - Safety Awareness Fair CURRENT [facility]. DEFICITS: Self-Care, Mobility, Endurance, Balance, and Safety Awareness SIGNATURE PANEL: (CDT)
[2021-09-13] MEDS ORDERED: clonazePAM 0.5 MG TAB PO PRN (17:57)
[2021-09-13] MEDS: MELATONIN 3 MG TABLET PO SCH (18:44)
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
[2021-09-14] MEDS: methocarbamoL 500 MG TAB PO SCH ×3 (05:10→21:18)
[2021-09-14] MEDS: METOCLOPRAMIDE 5 MG TAB PO SCH ×4 (07:36→21:18)
[2021-09-14] MEDS: CETIRIZINE HCL 5 MG TABLET PO SCH (07:36)
[2021-09-14] MEDS: MULTIVITAMIN TAB PO SCH (07:36)
[2021-09-14] MEDS: levETIRAcetam 500 MG TAB PO SCH ×2 (07:36→21:18)
[2021-09-14] MEDS: CRANBERRY FRUIT EXTRACT 400 MG CAP PO SCH ×2 (07:36→21:18)
[2021-09-14] MEDS: THIAMINE HCL 100 MG TABLET PO SCH (07:36)
[2021-09-14] MEDS: FOLIC ACID 1 MG TABLET PO SCH (07:36)
[2021-09-14] MEDS: MAGNESIUM CHLORIDE 64 MG TAB PO SCH (07:36)
[2021-09-14] MEDS: BACITRACIN OINTMENT 14 GM TUBE TOP SCH ×3 (07:37→21:20)
[2021-09-14] MEDS: GABAPENTIN 300 MG CAP PO SCH ×2 (07:37→21:18)
[2021-09-14] MEDS: DOCUSATE NA 50 MG/5 ML UCUP PO SCH ×2 (07:37→21:20)
[2021-09-14] MEDS: ENSURE ENLIVE 237 ML CAN PO SCH ×2 (07:38→20:00)
[2021-09-14] MEDS: NICOTINE 14 MG/PAT TD SCH (07:39)
[2021-09-14] MEDS: LIDOCAINE 4% TOP SOLUTION MM SCH (07:39)
[2021-09-14] MEDS: DRONABINOL 2.5 MG PO SCH ×2 (07:39→21:00)
--- NOTE | 2021-09-14 17:38 | R.PN ---
PROGRESS NOTES ENCOUNTER DATE AND TIME: 09/14/2021 17:35 (CDT) NAME ALICIA FERRELL DATE OF : 1950 DATE OF ADMISSION: 09/07/2021 14:36 (CDT) ACUTE RIGHT SIDED SUBDURAL HEMATOMACHIEF COMPLAINT: Right frontal subdural hematoma, right orbital floor and bilateral nasal bone fractures SUBJECTIVE: Pt denied any depression. Pt denied any Shortness of Breath. Ambulated 430' with SBA using a rolling walker. WBC 10.0, Hgb 10.0, Mg 1.9, Ca 9.1, K 4.1, prealbumin 11.4. Head CT shows right frontal subdural hematoma and bilateral nasal bone fractures. ENT recommends surgical repair of orbital floor fracture. Patient has an appointment 09/27/21 at [facility]. VITAL SIGNS Temperature: 97.2 F SBP/DBP: 136/61 Pulse: 77 Resp: 16 MEDICATION ALLERGIES: No Known Drug Allergies (NKDA) ENVIRONMENTAL ALLERGIES: - Substance Allergies None Known - Other Allergies None Known NURSING: - Shower allowing shower - Bladder care per protocol - Skin care per protocol PRECAUTIONS: - Fall Precaution 1 to 1 supervision ACTIVITIES OOB only with supervision THERAPIES: - Dietary and Nutrition Adequate Nutrition. Nutritional Education. Nutritional Supplements. Evaluate and Treat. - Occupational Therapy Cognitive Retraining. Patient needs Occupational Therapy for a daily minimum of 1.5 hours at least 5 out of 7 days, to improve Activities of Daily Living, including: Eating, Grooming, Bathing, Dressing, Toileting, Toilet Transfers, Community Reintegration, Higher functional activities, Adaptive Equipme nt, Splinting, Household Tasks, and Other activities as determined. Visual Perceptual Training. Evalu ate and Treat. Safety Awareness. ADL Training. Transfer Training. Household Tasks. Adaptive Equipment . UE Strengthening. Patient/Family Education. - Speech Therapy Cognitive Training. Expressive Language Skills. Memory Strategies. Patient needs Speech Therapy for a daily minimum of 1.5 hours at least 5 out of 7 days, to improve: Swallowing, Cognition, Language Ski lls, and Compensatory Strategies. Receptive Language Skills. Speech Intelligibility Training. Evaluat e and Treat. - Physical Therapy Patient needs Physical Therapy for a daily minimum of 1.5 hours at least 5 out of 7 days, to improve: Mobility, Strengthening, Transfers, Stretching, ROM, Endurance, Ability to manage stairs, Gait, and Balance. Evaluate and Treat. Balance Training. Gait Training. Safety Awareness. Transfer Training. Pa tient/Family Education. LE Strengthening. Modalities Training. PHYSICAL EXAM - Gen Alert and awake Lying in bed No apparent distress Oriented to: person, time, and place - Skin Bruising on arms and forearms. Bilateral facial bruising, sutures in left upper lip - Eyes Hematoma around both eyes with injected sclera. - ENMT [place] cervical collar is in place - Neck [place] cervical collar is in place. - CVS RRR - Chest No abnormalities - Resp No wheezing - Abd Soft - GI Non distended Deferred - No abnormalities - Ext No significant edema - MSK 4/5 weakness in both lower extremities. - Neuro 4/5 strength bilaterally upper and lower extremities. - Psych Mild anxiety. ASSESSMENT: Pt. is a 71 yo Right-handed female.On 08/31/2021 she was admitted to [facility] with diagnosis ACUTE RIGHT SIDED SUBDURAL HEMATOMA.Her impairment category is Brain Dysfunction 02 - Closed Injury (05.17).Pre-morbidly, Pt. was independent/mod-I in Locomotion, Safety Awareness, Social Cognition, Ba jessa, and Transfers Control; and she had good Sphincter Control, Self-Care, Communication, and Endur ance.Currently, she has deficits of Locomotion, Social Cognition, Safety Awareness, Balance, Transfer s Control, Sphincter Control, Self-Care, Communication, and Endurance.Pt. is now referred to [facility] for acute in-patient rehabilitation in order to maximize patient's function al independence in activities of daily living, strength, ROM, and mobility.- Rehab Goal Patient has realistic goal of being discharged at assistance level 7-Ind to reside at Home with Fami ly/Relatives. - Physical Therapy Gait dysfunction - to improve, our physical therapists will perform initial evaluation of pt's statu s upon admission and devise an individualized program for Gait Training, and Wheel Chair mobility Inability to transfer - to improve, our physical therapists will perform initial evaluation of pt's status upon admission and devise an individualized program for Bed mobility Need for home safety evaluation - to improve, our physical therapists will perform initial evaluatio n of pt's status upon admission and devise an individualized program for Home Evaluation Need in caregiver upon discharge - to improve, our physical therapists will perform initial evaluati on of pt's status upon admission and devise an individualized program for Caregiver Training New precaution - to improve, our physical therapists will perform initial evaluation of pt's status upon admission and devise an individualized program for Patient precaution education Edema - to improve, our physical therapists will perform initial evaluation of pt's status upon admi ssion and devise an individualized program for Elevation Training, and Lymphedema Therapy Poor balance - to improve, our physical therapists will perform initial evaluation of pt's status up on admission and devise an individualized program for Balance Training Poor endurance - to improve, our physical therapists will perform initial evaluation of pt's status upon admission and devise an individualized program for Endurance Training Weakness - to improve, our physical therapists will perform initial evaluation of pt's status upon a dmission and devise an individualized program for Aquatic Therapy, Neuromuscular Reeducation, and Str engthening Achieving independence - to improve, our physical therapists will perform initial evaluation of pt's status upon admission and devise an individualized program for Community Reintegration Activities - Occupational Therapy ADL deficits - to improve, our occupation therapists will perform initial evaluation of pt's status upon admission and devise an individualized program for Bathing, Bed mobility, Community Reintegratio n, Cooking, Dressing, Eating, Fine Motor Skills, Grooming, Homemaking, Kitchen Mobility, Laundry, Pat ient Education, Safety Awareness, Splinting - Positioning, Transfers(Toilet, Tub, Shower), and Wheel Chair Management Cognitive deficits - to improve, our occupation therapists will perform initial evaluation of pt's s tatus upon admission and devise an individualized program for Cognition - orientation Need for childbirth and infant care teacher - to improve, our occupation therapists will perform initial evaluation of pt's status upon admission and devise an individualized program for Caregiver Training Weakness - to improve, our occupation therapists will perform initial evaluation of pt's status upon admission and devise an individualized program for Aquatic Therapy, Balance, Endurance, UE ROM, and UE strengthening - Other See attached MAR (Medication Administration Record) - Diet Type Continue Regular - Diet - Liquid Texture Continue Regular - Tube Feed Continue N/A - Bladder care per protocol - Fall Precaution 1 to 1 supervision - Skin care per protocol - Diet - Solid Texture Continue Regular - Shower allowing shower FUNCTIONAL STATUS: UPDATED AT WEEKLY TEAM CONFERENCE - Bladder Same accident frequency: 7-Ind - No accidents in the past 7 days - Bowel Same accident frequency: 7-Ind - No accidents in the past 7 days - Walking Same score based on distance walked: 0(N/A) Same score based on distance walked: 1(<=50ft) - Wheelchair Same score based on distance traveled: 0(N/A) FUNCTIONAL STATUS: - Self-Care A. Eating Ind B. Grooming Ind C. Bathing Ind D. Dressing - Upper Ind E. Dressing - Lower Ind F. Toileting Ind - Sphincter Control G. Bladder control Ind H. Bowel control Ind - Transfers Control I. Bed/Chair/Wheelchair Ind J. Toilet Ind K. Tub/Shower Ind - Locomotion L. Walk/Wheelchair (W) Ind M. Stairs Ind - Social Cognition P. Social Interaction Ind Q. Problem Solving Ind R. Memory Ind - Endurance Good - Balance Good - Safety Awareness Good QI SCORES: - Self-Care A. Eating 03-Partial/moderate assistance B. Oral hygiene 03-Partial/moderate assistance C. Toileting hygiene 03-Partial/moderate assistance E. Shower/bathe self 03-Partial/moderate assistance F. Upper body dressing 03-Partial/moderate assistance G. Lower body dressing 03-Partial/moderate assistance H. Putting on/taking off footwear 88-Not attempted due to medical condition or safety concerns - Mobility A. Roll left and right 03-Partial/moderate assistance B. Sit to lying 03-Partial/moderate assistance C. Lying to sitting on side of bed 03-Partial/moderate assistance D. Sit to stand 03-Partial/moderate assistance E. Chair/[id number] transfer 03-Partial/moderate assistance F. Toilet transfer 03-Partial/moderate assistance G. Car transfer 88-Not attempted due to medical condition or safety concerns I. Walk 10 feet 88-Not attempted due to medical condition or safety concerns J. Walk 50 feet with two turns 88-Not attempted due to medical condition or safety concerns K. Walk 150 feet 88-Not attempted due to medical condition or safety concerns L. Walking 10 feet on uneven surfaces 88-Not attempted due to medical condition or safety concerns M. 1 step (curb) 88-Not attempted due to medical condition or safety concerns N. 4 steps 88-Not attempted due to medical condition or safety concerns O. 12 steps 88-Not attempted due to medical condition or safety concerns P. Picking up object 88-Not attempted due to medical condition or safety concerns R. Wheel 50 feet with two turns 88-Not attempted due to medical condition or safety concerns S. Wheel 150 feet 88-Not attempted due to medical condition or safety concerns - Bladder and Bowel Bladder continence Bowel continence - Endurance Fair - Balance Fair - Safety Awareness Fair CURRENT [facility]. DEFICITS: Self-Care, Mobility, Endurance, Balance, and Safety Awareness SIGNATURE PANEL: (CDT)
[2021-09-14] MEDS: MELATONIN 3 MG TABLET PO SCH (21:18)
[2021-09-15] MEDS: methocarbamoL 500 MG TAB PO SCH ×3 (04:18→20:16)
[2021-09-15] MEDS: ACETAMINOPHEN 325 MG TABLET PO PRN ×2 (07:23→20:19)
[2021-09-15] MEDS: DOCUSATE NA 50 MG/5 ML UCUP PO SCH ×2 (07:24→20:16)
[2021-09-15] MEDS: LIDOCAINE 4% TOP SOLUTION MM SCH (07:24)
[2021-09-15] MEDS: BACITRACIN OINTMENT 14 GM TUBE TOP SCH ×3 (07:24→20:18)
[2021-09-15] MEDS: CRANBERRY FRUIT EXTRACT 400 MG CAP PO SCH ×2 (07:25→20:16)
[2021-09-15] MEDS: GABAPENTIN 300 MG CAP PO SCH ×2 (07:25→20:16)
[2021-09-15] MEDS: CETIRIZINE HCL 5 MG TABLET PO SCH (07:25)
[2021-09-15] MEDS: METOCLOPRAMIDE 5 MG TAB PO SCH ×4 (07:26→20:16)
[2021-09-15] MEDS: levETIRAcetam 500 MG TAB PO SCH ×2 (07:26→20:16)
[2021-09-15] MEDS: MULTIVITAMIN TAB PO SCH (07:26)
[2021-09-15] MEDS: FOLIC ACID 1 MG TABLET PO SCH (07:26)
[2021-09-15] MEDS: NICOTINE 14 MG/PAT TD SCH (07:27)
[2021-09-15] MEDS: ENSURE ENLIVE 237 ML CAN PO SCH ×2 (07:27→20:17)
[2021-09-15] MEDS: THIAMINE HCL 100 MG TABLET PO SCH (07:29)
[2021-09-15 07:40] LABS: Absolute Lymphocytes (CBC) 1.9 K/uL (0.7-4.9); Hematocrit 30.4 % (36.0-45.0); Lymphocytes % 22.7 % (15.3-44.8); MCV 110.2 fL (80-100); MPV 7.4 fL (7.6-11.3); RBC Red Blood Cell Count 2.76 M/uL (3.86-4.86)
[2021-09-15 07:58] LABS: Albumin 3.2 g/dL (3.4-5.0); Magnesium 1.6 mg/dL (1.8-2.4); Prealbumin 19.8 mg/dL (20-40)
[2021-09-15] MEDS: DRONABINOL 2.5 MG PO SCH ×2 (09:00→20:17)
[2021-09-15] MEDS ORDERED: MAGNESIUM SULFATE 1 gm IVPB 1 GM/100 ML BAG IV ONE (12:00)
--- NOTE | 2021-09-15 18:07 | R.PN ---
PROGRESS NOTES ENCOUNTER DATE AND TIME: 09/15/2021 18:00 (CDT) NAME ALICIA FERRELL DATE OF : 1950 DATE OF ADMISSION: 09/07/2021 14:36 (CDT) ACUTE RIGHT SIDED SUBDURAL HEMATOMACHIEF COMPLAINT: Right frontal subdural hematoma, right orbital floor and bilateral nasal bone fractures SUBJECTIVE: Pt denied any depression. Pt denied any Shortness of Breath. Ambulated 500' with SBA using a rolling walker. WBC 8.3, Hgb 10.0, Mg 1.6, Ca 9.8, K 4.1, prealbumin 19.8. Head CT shows right frontal subdural hematoma and bilateral nasal bone fractures. ENT recommends surgical repair of orbital floor fracture. Patient has an appointment 09/27/21 at [facility]. VITAL SIGNS Temperature: 97.8 F SBP/DBP: 120/66 Pulse: 95 Resp: 16 MEDICATION ALLERGIES: No Known Drug Allergies (NKDA) ENVIRONMENTAL ALLERGIES: - Substance Allergies None Known - Other Allergies None Known NURSING: - Shower allowing shower - Bladder care per protocol - Skin care per protocol PRECAUTIONS: - Fall Precaution 1 to 1 supervision ACTIVITIES OOB only with supervision THERAPIES: - Dietary and Nutrition Adequate Nutrition. Nutritional Education. Nutritional Supplements. Evaluate and Treat. - Occupational Therapy Cognitive Retraining. Patient needs Occupational Therapy for a daily minimum of 1.5 hours at least 5 out of 7 days, to improve Activities of Daily Living, including: Eating, Grooming, Bathing, Dressing, Toileting, Toilet Transfers, Community Reintegration, Higher functional activities, Adaptive Equipme nt, Splinting, Household Tasks, and Other activities as determined. Visual Perceptual Training. Evalu ate and Treat. Safety Awareness. ADL Training. Transfer Training. Household Tasks. Adaptive Equipment . UE Strengthening. Patient/Family Education. - Speech Therapy Cognitive Training. Expressive Language Skills. Memory Strategies. Patient needs Speech Therapy for a daily minimum of 1.5 hours at least 5 out of 7 days, to improve: Swallowing, Cognition, Language Ski lls, and Compensatory Strategies. Receptive Language Skills. Speech Intelligibility Training. Evaluat e and Treat. - Physical Therapy Patient needs Physical Therapy for a daily minimum of 1.5 hours at least 5 out of 7 days, to improve: Mobility, Strengthening, Transfers, Stretching, ROM, Endurance, Ability to manage stairs, Gait, and Balance. Evaluate and Treat. Balance Training. Gait Training. Safety Awareness. Transfer Training. Pa tient/Family Education. LE Strengthening. Modalities Training. PHYSICAL EXAM - Gen Alert and awake Lying in bed No apparent distress Oriented to: person, time, and place - Skin Bruising on arms and forearms. Bilateral facial bruising, sutures in left upper lip - Eyes Hematoma around both eyes with injected sclera. - ENMT [place] J cervical collar is in place - Neck [place] J cervical collar is in place. - CVS RRR - Chest No abnormalities - Resp No wheezing - Abd Soft - GI Non distended Deferred - No abnormalities - Ext No significant edema - MSK 4/5 weakness in both lower extremities. - Neuro 4/5 strength bilaterally upper and lower extremities. - Psych Mild anxiety. ASSESSMENT: Pt. is a 71 yo Right-handed female.On 08/31/2021 she was admitted to [facility] with diagnosis ACUTE RIGHT SIDED SUBDURAL HEMATOMA.Her impairment category is Brain Dysfunction 02 - Closed Injury (05.17).Pre-morbidly, Pt. was independent/mod-I in Locomotion, Safety Awareness, Social Cognition, Ba jessa, and Transfers Control; and she had good Sphincter Control, Self-Care, Communication, and Endur ance.Currently, she has deficits of Locomotion, Social Cognition, Safety Awareness, Balance, Transfer s Control, Sphincter Control, Self-Care, Communication, and Endurance.Pt. is now referred to [facility] for acute in-patient rehabilitation in order to maximize patient's function al independence in activities of daily living, strength, ROM, and mobility.- Rehab Goal Patient has realistic goal of being discharged at assistance level 7-Ind to reside at Home with Fami ly/Relatives. - Physical Therapy Gait dysfunction - to improve, our physical therapists will perform initial evaluation of pt's statu s upon admission and devise an individualized program for Gait Training, and Wheel Chair mobility Inability to transfer - to improve, our physical therapists will perform initial evaluation of pt's status upon admission and devise an individualized program for Bed mobility Need for home safety evaluation - to improve, our physical therapists will perform initial evaluatio n of pt's status upon admission and devise an individualized program for Home Evaluation Need in caregiver upon discharge - to improve, our physical therapists will perform initial evaluati on of pt's status upon admission and devise an individualized program for Caregiver Training New precaution - to improve, our physical therapists will perform initial evaluation of pt's status upon admission and devise an individualized program for Patient precaution education Edema - to improve, our physical therapists will perform initial evaluation of pt's status upon admi ssion and devise an individualized program for Elevation Training, and Lymphedema Therapy Poor balance - to improve, our physical therapists will perform initial evaluation of pt's status up on admission and devise an individualized program for Balance Training Poor endurance - to improve, our physical therapists will perform initial evaluation of pt's status upon admission and devise an individualized program for Endurance Training Weakness - to improve, our physical therapists will perform initial evaluation of pt's status upon a dmission and devise an individualized program for Aquatic Therapy, Neuromuscular Reeducation, and Str engthening Achieving independence - to improve, our physical therapists will perform initial evaluation of pt's status upon admission and devise an individualized program for Community Reintegration Activities - Occupational Therapy ADL deficits - to improve, our occupation therapists will perform initial evaluation of pt's status upon admission and devise an individualized program for Bathing, Bed mobility, Community Reintegratio n, Cooking, Dressing, Eating, Fine Motor Skills, Grooming, Homemaking, Kitchen Mobility, Laundry, Pat ient Education, Safety Awareness, Splinting - Positioning, Transfers(Toilet, Tub, Shower), and Wheel Chair Management Cognitive deficits - to improve, our occupation therapists will perform initial evaluation of pt's s tatus upon admission and devise an individualized program for Cognition - orientation Need for property caretaker - to improve, our occupation therapists will perform initial evaluation of pt's status upon admission and devise an individualized program for Caregiver Training Weakness - to improve, our occupation therapists will perform initial evaluation of pt's status upon admission and devise an individualized program for Aquatic Therapy, Balance, Endurance, UE ROM, and UE strengthening - Other See attached MAR (Medication Administration Record) - Diet Type Continue Regular - Diet - Liquid Texture Continue Regular - Tube Feed Continue N/A - Bladder care per protocol - Fall Precaution 1 to 1 supervision - Skin care per protocol - Diet - Solid Texture Continue Regular - Shower allowing shower FUNCTIONAL STATUS: UPDATED AT WEEKLY TEAM CONFERENCE - Bladder Same accident frequency: 7-Ind - No accidents in the past 7 days - Bowel Same accident frequency: 7-Ind - No accidents in the past 7 days - Walking Same score based on distance walked: 0(N/A) Same score based on distance walked: 1(<=50ft) - Wheelchair Same score based on distance traveled: 0(N/A) FUNCTIONAL STATUS: - Self-Care A. Eating Ind B. Grooming Ind C. Bathing Ind D. Dressing - Upper Ind E. Dressing - Lower Ind F. Toileting Ind - Sphincter Control G. Bladder control Ind H. Bowel control Ind - Transfers Control I. Bed/Chair/Wheelchair Ind J. Toilet Ind K. Tub/Shower Ind - Locomotion L. Walk/Wheelchair (W) Ind M. Stairs Ind - Social Cognition P. Social Interaction Ind Q. Problem Solving Ind R. Memory Ind - Endurance Good - Balance Good - Safety Awareness Good QI SCORES: - Self-Care A. Eating 03-Partial/moderate assistance B. Oral hygiene 03-Partial/moderate assistance C. Toileting hygiene 03-Partial/moderate assistance E. Shower/bathe self 03-Partial/moderate assistance F. Upper body dressing 03-Partial/moderate assistance G. Lower body dressing 03-Partial/moderate assistance H. Putting on/taking off footwear 88-Not attempted due to medical condition or safety concerns - Mobility A. Roll left and right 03-Partial/moderate assistance B. Sit to lying 03-Partial/moderate assistance C. Lying to sitting on side of bed 03-Partial/moderate assistance D. Sit to stand 03-Partial/moderate assistance E. Chair/[id number] transfer 03-Partial/moderate assistance F. Toilet transfer 03-Partial/moderate assistance G. Car transfer 88-Not attempted due to medical condition or safety concerns I. Walk 10 feet 88-Not attempted due to medical condition or safety concerns J. Walk 50 feet with two turns 88-Not attempted due to medical condition or safety concerns K. Walk 150 feet 88-Not attempted due to medical condition or safety concerns L. Walking 10 feet on uneven surfaces 88-Not attempted due to medical condition or safety concerns M. 1 step (curb) 88-Not attempted due to medical condition or safety concerns N. 4 steps 88-Not attempted due to medical condition or safety concerns O. 12 steps 88-Not attempted due to medical condition or safety concerns P. Picking up object 88-Not attempted due to medical condition or safety concerns R. Wheel 50 feet with two turns 88-Not attempted due to medical condition or safety concerns S. Wheel 150 feet 88-Not attempted due to medical condition or safety concerns - Bladder and Bowel Bladder continence Bowel continence - Endurance Fair - Balance Fair - Safety Awareness Fair CURRENT [facility]. DEFICITS: Self-Care, Mobility, Endurance, Balance, and Safety Awareness SIGNATURE PANEL: (CDT)
[2021-09-15] MEDS: MAGNESIUM OXIDE 400 MG TAB PO SCH (20:17)
[2021-09-15] MEDS: MELATONIN 3 MG TABLET PO SCH (20:17)
[2021-09-16] MEDS: CODEINE 30MG/APAP 300MG TAB PO PRN ×2 (01:54→07:04)
[2021-09-16] MEDS: methocarbamoL 500 MG TAB PO SCH ×3 (04:00→20:07)
[2021-09-16 06:42] LABS: Magnesium 1.7 mg/dL (1.8-2.4)
[2021-09-16] MEDS: DRONABINOL 2.5 MG PO SCH ×2 (09:00→20:08)
[2021-09-16] MEDS: BACITRACIN OINTMENT 14 GM TUBE TOP SCH ×3 (09:16→20:08)
[2021-09-16] MEDS: DOCUSATE NA 50 MG/5 ML UCUP PO SCH ×2 (09:17→20:00)
[2021-09-16] MEDS: CETIRIZINE HCL 5 MG TABLET PO SCH (09:18)
[2021-09-16] MEDS: THIAMINE HCL 100 MG TABLET PO SCH (09:18)
[2021-09-16] MEDS: GABAPENTIN 300 MG CAP PO SCH ×2 (09:18→20:06)
[2021-09-16] MEDS: FOLIC ACID 1 MG TABLET PO SCH (09:19)
[2021-09-16] MEDS: MAGNESIUM OXIDE 400 MG TAB PO SCH ×2 (09:19→20:07)
[2021-09-16] MEDS: MULTIVITAMIN TAB PO SCH (09:19)
[2021-09-16] MEDS: METOCLOPRAMIDE 5 MG TAB PO SCH ×4 (09:19→20:07)
[2021-09-16] MEDS: NICOTINE 14 MG/PAT TD SCH (09:20)
[2021-09-16] MEDS: levETIRAcetam 500 MG TAB PO SCH ×2 (09:20→20:06)
[2021-09-16] MEDS: CRANBERRY FRUIT EXTRACT 400 MG CAP PO SCH ×2 (09:20→20:06)
[2021-09-16] MEDS: LIDOCAINE 4% TOP SOLUTION MM SCH (09:21)
[2021-09-16] MEDS: ENSURE ENLIVE 237 ML CAN PO SCH ×2 (09:22→20:09)
--- NOTE | 2021-09-16 09:41 | P.RH.PN ---
Estimated Length of Stay: 13 Expected Discharge Date: 09/19/21 Discharge Disposition Plan: Home Family Support: Yes Custodial Goal: Mobility, Transfers, Self Care Vital Signs: Last Vital Signs Temp 98.2 F 09/15/21 21:20 Pulse 107 H 09/15/21 21:20 Resp 18 09/16/21 07:04 BP 127/62 09/15/21 21:20 Pulse Ox 99 09/16/21 07:04 Laboratory: Laboratory Last Values WBC 8.3 K/uL (4.3-10.9) D 09/15/21 07:18 RBC 2.76 M/uL (3.86-4.86) L 09/15/21 07:18 Hgb 10.1 g/dL (12.0-15.0) L 09/15/21 07:18 Hct 30.4 % (36.0-45.0) L 09/15/21 07:18 MCV 110.2 fL (80-100) H 09/15/21 07:18 MCH 36.7 pg (27.0-35.0) H 09/15/21 07:18 MCHC 33.3 g/dL (32.0-36.0) 09/15/21 07:18 RDW 17.9 % (12.1-15.2) H 09/15/21 07:18 Plt Count 505 K/uL (152-406) H 09/15/21 07:18 MPV 7.4 fL (7.6-11.3) L 09/15/21 07:18 Neutrophils % 61.6 % (41.7-73.7) 09/15/21 07:18 Lymphocytes % 22.7 % (15.3-44.8) 09/15/21 07:18 Monocytes % 11.1 % (3.3-12.3) 09/15/21 07:18 Eosinophils % 3.2 % (0-4.4) 09/15/21 07:18 Basophils % 1.4 % (0-1.3) H 09/15/21 07:18 Absolute Neutrophils 5.1 K/uL (1.8-8.0) 09/15/21 07:18 Segmented Neutrophils 48 % (40-80) 09/07/21 04:06 Band Neutrophils 3 % (0-1) H 09/07/21 04:06 Absolute Lymphocytes 1.9 K/uL (0.7-4.9) 09/15/21 07:18 Lymphocytes 26 % (15-42) 09/07/21 04:06 Monocytes 17 % (0-10) H 09/07/21 04:06 Absolute Monocytes 0.9 K/uL (0.1-1.3) 09/15/21 07:18 Eosinophils 1 % (0-3) 09/07/21 04:06 Absolute Eosinophils 0.3 K/uL (0-0.5) 09/15/21 07:18 Basophils 1 % (0-1) 09/07/21 04:06 Absolute Basophils 0.1 K/uL (0-0.5) 09/15/21 07:18 Reactive Lymphocytes 4 % 09/07/21 04:06 Platelet Estimate Adeq 09/07/21 04:06 Macrocytosis 2+ 09/07/21 04:06 Morphology Comment Noted (NOT SEEN) 09/07/21 04:06 Sodium 140 mmol/L (136-145) 09/16/21 06:05 Potassium 4.0 mmol/L (3.5-5.1) 09/16/21 06:05 Chloride 106 mmol/L (98-107) 09/16/21 06:05 Carbon Dioxide 29 mmol/L (21-32) 09/16/21 06:05 Anion Gap 9.0 mEq/L (5.0-15.0) 09/16/21 06:05 BUN 16 mg/dL (7-18) 09/16/21 06:05 Creatinine 0.58 mg/dL (0.55-1.3) 09/16/21 06:05 Est GFR (CKD-EPI) 97 ml/min (=/>90) 09/16/21 06:05 Glucose 100 mg/dL (74-106) 09/16/21 06:05 Calcium 9.2 mg/dL (8.5-10.1) 09/16/21 06:05 Magnesium 1.7 mg/dL (1.8-2.4) L 09/16/21 06:05 Albumin 3.2 g/dL (3.4-5.0) L 09/15/21 07:18 Prealbumin 19.8 mg/dL (20-40) L 09/15/21 07:18 Urine Color Yellow (Yellow) 09/07/21 16:41 Urine Appearance Cloudy (Clear) 09/07/21 16:41 Urine pH 7.5 (5.0-7.0) H 09/07/21 16:41 Ur Specific [place] 1.020 (1.005-1.030) 09/07/21 16:41 Glucose (UA)(Auto) Negative (Negative) 09/07/21 16:41 Urine Ketones Negative (Negative) 09/07/21 16:41 Urine Blood Trace-intact (Negative) H 09/07/21 16:41 Urine Nitrite Negative (Negative) 09/07/21 16:41 Urine Bilirubin 1+ (Negative) H 09/07/21 16:41 Urine Urobilinogen 2.0 mg/dL (0.2-1.0) H 09/07/21 16:41 Ur Leukocyte Esterase Negative (Negative) 09/07/21 16:41 Urine RBC <5 /HPF (NONE SEEN) 09/07/21 16:41 Urine WBC 5-10 /HPF (<5) H 09/07/21 16:41 Ur Squamous Epith Cells 10-20 /HPF (NONE SEEN) H 09/07/21 16:41 Ur Urothelial Cells Cancelled 09/07/21 12:50 Calcium Oxalate Crystal Cancelled 09/07/21 12:50 Uric Acid Crystals Cancelled 09/07/21 12:50 Triple Phos Crystals Cancelled 09/07/21 12:50 Other Crystals Cancelled 09/07/21 12:50 Amorphous Sediment Cancelled 09/07/21 12:50 Glitter Cells Cancelled 09/07/21 12:50 Urine Bacteria <20 /HPF (<20) 09/07/21 16:41 Hyaline Casts Cancelled 09/07/21 12:50 Fine Granular Casts Cancelled 09/07/21 12:50 Coarse Granular Casts Cancelled 09/07/21 12:50 Waxy Casts Cancelled 09/07/21 12:50 RBC Casts Cancelled 09/07/21 12:50 WBC Casts Cancelled 09/07/21 12:50 Urine Mucus 2+ /HPF (NONE SEEN) 09/07/21 16:41 Urine Other Cancelled 09/07/21 12:50 Urine Trichomonas Cancelled 09/07/21 12:50 Urine Yeast Cancelled 09/07/21 12:50 Ur Yeast w Hyphae Cancelled 09/07/21 12:50 Urine Yeast (Budding) Cancelled 09/07/21 12:50 Urine Sperm Cancelled 09/07/21 12:50 Ur Microscopic Review Cancelled 09/07/21 16:41 Urine Culture Reflexed Not needed 09/07/21 16:41 Urine Total Volume Cancelled 09/07/21 12:50 Urine Total Protein Negative (Negative) 09/07/21 16:41 Weight: 98 lb 6.4 oz Wound Present: No Closed Surgical Incision Present: No Negative Pressure Wound Therapy Present: No Physician Update: Labs reviewed and are stable. Bed mobility min assistance, transfers, walking 500' with SBA. Wheelchair 250' x with SBA, 15 steps with CGA. Making fair progress with occupational therapy. Comment: no skin breakdown Functional Improvement: pt has not met goals at this time, however pt has progressed very well with PT. pt has improved trasnfers, gait training, balance control, and stamina through out stay thus far. 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 Please see the Rehabilitation Signature page for all necessary s ignatures.
--- NOTE | 2021-09-16 09:49 | RAD REPORT ---
EXAM DESCRIPTION: RAD - Barium Swallow Modified - 09/16/2021 9:28 am CLINICAL HISTORY: dysphagia COMPARISON: No comparisons TECHNIQUE: The patient was given liquid, semi-solid and solid forms of barium. Lateral view fluorosc opic imaging was performed in conjunction with speech pathology service. FINDINGS: Laryngeal penetration: cleared with thin liquid Moderate - severe esophageal dysmotility, possible stomach sphincter stenosis. Total fluoroscopy time: 3 minutes and 33 seconds
[2021-09-16 10:16] VITALS: BMI 18.2
[2021-09-16] MEDS: clonazePAM 0.5 MG TAB PO PRN (20:06)
[2021-09-16] MEDS: MELATONIN 3 MG TABLET PO SCH (20:07)
[2021-09-17] MEDS: methocarbamoL 500 MG TAB PO SCH ×3 (04:29→20:30)
[2021-09-17] MEDS: CODEINE 30MG/APAP 300MG TAB PO PRN ×2 (06:37→14:20)
[2021-09-17] MEDS: BACITRACIN OINTMENT 14 GM TUBE TOP SCH ×3 (06:38→21:02)
[2021-09-17] MEDS: METOCLOPRAMIDE 5 MG TAB PO SCH ×4 (06:38→20:30)
[2021-09-17] MEDS: LIDOCAINE 4% TOP SOLUTION MM SCH (06:38)
[2021-09-17] MEDS: SOD CHLORIDE 0.65% NASAL SPRAY NAS PRN ×2 (06:39→14:06)
[2021-09-17] MEDS: NICOTINE 14 MG/PAT TD SCH (06:39)
[2021-09-17] MEDS: MAGNESIUM OXIDE 400 MG TAB PO SCH ×2 (07:45→20:30)
[2021-09-17] MEDS: CETIRIZINE HCL 5 MG TABLET PO SCH (07:45)
[2021-09-17] MEDS: DOCUSATE NA 50 MG/5 ML UCUP PO SCH ×2 (07:45→20:00)
[2021-09-17] MEDS: CRANBERRY FRUIT EXTRACT 400 MG CAP PO SCH ×2 (07:45→20:30)
[2021-09-17] MEDS: ENSURE ENLIVE 237 ML CAN PO SCH ×2 (07:46→20:00)
[2021-09-17] MEDS: MULTIVITAMIN TAB PO SCH (07:46)
[2021-09-17] MEDS: FOLIC ACID 1 MG TABLET PO SCH (07:46)
[2021-09-17] MEDS: THIAMINE HCL 100 MG TABLET PO SCH (07:46)
[2021-09-17] MEDS: GABAPENTIN 300 MG CAP PO SCH ×2 (07:47→20:31)
[2021-09-17] MEDS: levETIRAcetam 500 MG TAB PO SCH ×2 (07:47→20:31)
[2021-09-17] MEDS: DRONABINOL 2.5 MG PO SCH ×2 (09:00→21:00)
[2021-09-17] MEDS ORDERED: MAGNESIUM SULFATE 1 gm IVPB 1 GM/100 ML BAG IV ONE (11:00)
[2021-09-17] MEDS: MELATONIN 3 MG TABLET PO SCH (20:30)
[2021-09-18] MEDS: methocarbamoL 500 MG TAB PO SCH ×3 (04:00→18:39)
[2021-09-18] MEDS: BACITRACIN OINTMENT 14 GM TUBE TOP SCH ×3 (06:43→18:38)
[2021-09-18] MEDS: METOCLOPRAMIDE 5 MG TAB PO SCH ×4 (06:44→18:39)
[2021-09-18] MEDS: CODEINE 30MG/APAP 300MG TAB PO PRN (06:44)
[2021-09-18] MEDS: LIDOCAINE 4% TOP SOLUTION MM SCH (06:44)
[2021-09-18] MEDS: SOD CHLORIDE 0.65% NASAL SPRAY NAS PRN ×2 (06:44→12:48)
[2021-09-18] MEDS: NICOTINE 14 MG/PAT TD SCH (06:46)
[2021-09-18] MEDS: DOCUSATE NA 50 MG/5 ML UCUP PO SCH ×2 (07:31→18:40)
[2021-09-18] MEDS: MAGNESIUM OXIDE 400 MG TAB PO SCH ×2 (07:31→18:38)
[2021-09-18] MEDS: CETIRIZINE HCL 5 MG TABLET PO SCH (07:31)
[2021-09-18] MEDS: GABAPENTIN 300 MG CAP PO SCH ×2 (07:32→18:39)
[2021-09-18] MEDS: MULTIVITAMIN TAB PO SCH (07:32)
[2021-09-18] MEDS: THIAMINE HCL 100 MG TABLET PO SCH (07:32)
[2021-09-18] MEDS: FOLIC ACID 1 MG TABLET PO SCH (07:32)
[2021-09-18] MEDS: levETIRAcetam 500 MG TAB PO SCH ×2 (07:32→18:39)
[2021-09-18] MEDS: CRANBERRY FRUIT EXTRACT 400 MG CAP PO SCH ×2 (07:32→18:40)
[2021-09-18] MEDS: ENSURE ENLIVE 237 ML CAN PO SCH ×2 (07:33→18:40)
[2021-09-18] MEDS: DRONABINOL 2.5 MG PO SCH ×2 (08:51→18:40)
[2021-09-18 08:58] LABS: Magnesium 1.6 mg/dL (1.8-2.4); Potassium 4.1 mmol/L (3.5-5.1)
[2021-09-18] MEDS ORDERED: MAGNESIUM SULFATE 1 gm IVPB 1 GM/100 ML BAG IV ONE (10:00)
[2021-09-18] MEDS: MELATONIN 3 MG TABLET PO SCH (18:38)
[2021-09-18] MEDS: clonazePAM 0.5 MG TAB PO PRN (18:39)
[2021-09-19] MEDS: methocarbamoL 500 MG TAB PO SCH ×2 (03:16→12:07)
[2021-09-19] MEDS: CODEINE 30MG/APAP 300MG TAB PO PRN (05:12)
[2021-09-19 07:21] VITALS: BP 139/71; TEMP 97.8
[2021-09-19] MEDS: DOCUSATE NA 50 MG/5 ML UCUP PO SCH (07:22)
[2021-09-19] MEDS: BACITRACIN OINTMENT 14 GM TUBE TOP SCH ×2 (07:22→14:00)
[2021-09-19] MEDS: LIDOCAINE 4% TOP SOLUTION MM SCH (07:23)
[2021-09-19] MEDS: FOLIC ACID 1 MG TABLET PO SCH (07:24)
[2021-09-19] MEDS: METOCLOPRAMIDE 5 MG TAB PO SCH ×2 (07:24→12:07)
[2021-09-19] MEDS: CETIRIZINE HCL 5 MG TABLET PO SCH (07:24)
[2021-09-19] MEDS: CRANBERRY FRUIT EXTRACT 400 MG CAP PO SCH (07:25)
[2021-09-19] MEDS: MULTIVITAMIN TAB PO SCH (07:25)
[2021-09-19] MEDS: THIAMINE HCL 100 MG TABLET PO SCH (07:25)
[2021-09-19] MEDS: GABAPENTIN 300 MG CAP PO SCH (07:25)
[2021-09-19] MEDS: NICOTINE 14 MG/PAT TD SCH (07:25)
[2021-09-19] MEDS: levETIRAcetam 500 MG TAB PO SCH (07:25)
[2021-09-19] MEDS: DRONABINOL 2.5 MG PO SCH (07:26)
[2021-09-19] MEDS: MAGNESIUM OXIDE 400 MG TAB PO SCH (09:20)
[2021-09-19] MEDS: ENSURE ENLIVE 237 ML CAN PO SCH (09:20)
[2021-09-19] MEDS: ACETAMINOPHEN 325 MG TABLET PO PRN (13:57)
--- NOTE | 2021-09-19 17:35 | R.PN ---
PROGRESS NOTES ENCOUNTER DATE AND TIME: 09/19/2021 17:31 (CDT) NAME ALICIA FERRELL DATE OF : 1950 DATE OF ADMISSION: 09/07/2021 14:36 (CDT) ACUTE RIGHT SIDED SUBDURAL HEMATOMACHIEF COMPLAINT: Right frontal subdural hematoma, right orbital floor and bilateral nasal bone fractures SUBJECTIVE: Pt denied any depression. Pt denied any Shortness of Breath. Ambulated 500' with SBA using a rolling walker. WBC 8.3, Hgb 10.0, Mg 1.9, Ca 9.8, K 4.1, prealbumin 19.8. Head CT shows right frontal subdural hematoma and bilateral nasal bone fractures. ENT recommends surgical repair of orbital floor fracture. Patient has an appointment 09/27/21 at [facility]. Up and down 20 steps with contact guard assistance. VITAL SIGNS Temperature: 97.8 F SBP/DBP: 139/71 Pulse: 77 Resp: 16 MEDICATION ALLERGIES: No Known Drug Allergies (NKDA) ENVIRONMENTAL ALLERGIES: - Substance Allergies None Known - Other Allergies None Known NURSING: - Shower allowing shower - Bladder care per protocol - Skin care per protocol PRECAUTIONS: - Fall Precaution 1 to 1 supervision ACTIVITIES OOB only with supervision THERAPIES: - Dietary and Nutrition Adequate Nutrition. Nutritional Education. Nutritional Supplements. Evaluate and Treat. - Occupational Therapy Cognitive Retraining. Patient needs Occupational Therapy for a daily minimum of 1.5 hours at least 5 out of 7 days, to improve Activities of Daily Living, including: Eating, Grooming, Bathing, Dressing, Toileting, Toilet Transfers, Community Reintegration, Higher functional activities, Adaptive Equipme nt, Splinting, Household Tasks, and Other activities as determined. Visual Perceptual Training. Evalu ate and Treat. Safety Awareness. ADL Training. Transfer Training. Household Tasks. Adaptive Equipment . UE Strengthening. Patient/Family Education. - Speech Therapy Cognitive Training. Expressive Language Skills. Memory Strategies. Patient needs Speech Therapy for a daily minimum of 1.5 hours at least 5 out of 7 days, to improve: Swallowing, Cognition, Language Ski lls, and Compensatory Strategies. Receptive Language Skills. Speech Intelligibility Training. Evaluat e and Treat. - Physical Therapy Patient needs Physical Therapy for a daily minimum of 1.5 hours at least 5 out of 7 days, to improve: Mobility, Strengthening, Transfers, Stretching, ROM, Endurance, Ability to manage stairs, Gait, and Balance. Evaluate and Treat. Balance Training. Gait Training. Safety Awareness. Transfer Training. Pa tient/Family Education. LE Strengthening. Modalities Training. PHYSICAL EXAM - Gen Alert and awake Lying in bed No apparent distress Oriented to: person, time, and place - Skin Bruising on arms and forearms. Bilateral facial bruising, sutures in left upper lip - Eyes Hematoma around both eyes with injected sclera. - ENMT [place] cervical collar is in place - Neck [place] cervical collar is in place. - CVS RRR - Chest No abnormalities - Resp No wheezing - Abd Soft - GI Non distended Deferred - No abnormalities - Ext No significant edema - MSK 4/5 weakness in both lower extremities. - Neuro 4/5 strength bilaterally upper and lower extremities. - Psych Mild anxiety. ASSESSMENT: Pt. is a 71 yo Right-handed female.On 08/31/2021 she was admitted to [facility] with diagnosis ACUTE RIGHT SIDED SUBDURAL HEMATOMA.Her impairment category is Brain Dysfunction 02 - Closed Injury (05.17).Pre-morbidly, Pt. was independent/mod-I in Locomotion, Safety Awareness, Social Cognition, Ba jessa, and Transfers Control; and she had good Sphincter Control, Self-Care, Communication, and Endur ance.Currently, she has deficits of Locomotion, Social Cognition, Safety Awareness, Balance, Transfer s Control, Sphincter Control, Self-Care, Communication, and Endurance.Pt. is now referred to [facility] for acute in-patient rehabilitation in order to maximize patient's function al independence in activities of daily living, strength, ROM, and mobility.- Rehab Goal Patient has realistic goal of being discharged at assistance level 7-Ind to reside at Home with Fami ly/Relatives. - Physical Therapy Gait dysfunction - to improve, our physical therapists will perform initial evaluation of pt's statu s upon admission and devise an individualized program for Gait Training, and Wheel Chair mobility Inability to transfer - to improve, our physical therapists will perform initial evaluation of pt's status upon admission and devise an individualized program for Bed mobility Need for home safety evaluation - to improve, our physical therapists will perform initial evaluatio n of pt's status upon admission and devise an individualized program for Home Evaluation Need in caregiver upon discharge - to improve, our physical therapists will perform initial evaluati on of pt's status upon admission and devise an individualized program for Caregiver Training New precaution - to improve, our physical therapists will perform initial evaluation of pt's status upon admission and devise an individualized program for Patient precaution education Edema - to improve, our physical therapists will perform initial evaluation of pt's status upon admi ssion and devise an individualized program for Elevation Training, and Lymphedema Therapy Poor balance - to improve, our physical therapists will perform initial evaluation of pt's status up on admission and devise an individualized program for Balance Training Poor endurance - to improve, our physical therapists will perform initial evaluation of pt's status upon admission and devise an individualized program for Endurance Training Weakness - to improve, our physical therapists will perform initial evaluation of pt's status upon a dmission and devise an individualized program for Aquatic Therapy, Neuromuscular Reeducation, and Str engthening Achieving independence - to improve, our physical therapists will perform initial evaluation of pt's status upon admission and devise an individualized program for Community Reintegration Activities - Occupational Therapy ADL deficits - to improve, our occupation therapists will perform initial evaluation of pt's status upon admission and devise an individualized program for Bathing, Bed mobility, Community Reintegratio n, Cooking, Dressing, Eating, Fine Motor Skills, Grooming, Homemaking, Kitchen Mobility, Laundry, Pat ient Education, Safety Awareness, Splinting - Positioning, Transfers(Toilet, Tub, Shower), and Wheel Chair Management Cognitive deficits - to improve, our occupation therapists will perform initial evaluation of pt's s tatus upon admission and devise an individualized program for Cognition - orientation Need for hemodialysis patient care specialist - to improve, our occupation therapists will perform initial evaluation of pt's status upon admission and devise an individualized program for Caregiver Training Weakness - to improve, our occupation therapists will perform initial evaluation of pt's status upon admission and devise an individualized program for Aquatic Therapy, Balance, Endurance, UE ROM, and UE strengthening - Other See attached MAR (Medication Administration Record) - Diet Type Continue Regular - Diet - Liquid Texture Continue Regular - Tube Feed Continue N/A - Bladder care per protocol - Fall Precaution 1 to 1 supervision - Skin care per protocol - Diet - Solid Texture Continue Regular - Shower allowing shower FUNCTIONAL STATUS: UPDATED AT WEEKLY TEAM CONFERENCE - Bladder Same accident frequency: 7-Ind - No accidents in the past 7 days - Bowel Same accident frequency: 7-Ind - No accidents in the past 7 days - Walking Same score based on distance walked: 0(N/A) Same score based on distance walked: 1(<=50ft) - Wheelchair Same score based on distance traveled: 0(N/A) FUNCTIONAL STATUS: - Self-Care A. Eating Ind B. Grooming Ind C. Bathing Ind D. Dressing - Upper Ind E. Dressing - Lower Ind F. Toileting Ind - Sphincter Control G. Bladder control Ind H. Bowel control Ind - Transfers Control I. Bed/Chair/Wheelchair Ind J. Toilet Ind K. Tub/Shower Ind - Locomotion L. Walk/Wheelchair (W) Ind M. Stairs Ind - Social Cognition P. Social Interaction Ind Q. Problem Solving Ind R. Memory Ind - Endurance Good - Balance Good - Safety Awareness Good QI SCORES: - Self-Care A. Eating 03-Partial/moderate assistance B. Oral hygiene 03-Partial/moderate assistance C. Toileting hygiene 03-Partial/moderate assistance E. Shower/bathe self 03-Partial/moderate assistance F. Upper body dressing 03-Partial/moderate assistance G. Lower body dressing 03-Partial/moderate assistance H. Putting on/taking off footwear 88-Not attempted due to medical condition or safety concerns - Mobility A. Roll left and right 03-Partial/moderate assistance B. Sit to lying 03-Partial/moderate assistance C. Lying to sitting on side of bed 03-Partial/moderate assistance D. Sit to stand 03-Partial/moderate assistance E. Chair/[id number]-[id number] transfer 03-Partial/moderate assistance F. Toilet transfer 03-Partial/moderate assistance G. Car transfer 88-Not attempted due to medical condition or safety concerns I. Walk 10 feet 88-Not attempted due to medical condition or safety concerns J. Walk 50 feet with two turns 88-Not attempted due to medical condition or safety concerns K. Walk 150 feet 88-Not attempted due to medical condition or safety concerns L. Walking 10 feet on uneven surfaces 88-Not attempted due to medical condition or safety concerns M. 1 step (curb) 88-Not attempted due to medical condition or safety concerns N. 4 steps 88-Not attempted due to medical condition or safety concerns O. 12 steps 88-Not attempted due to medical condition or safety concerns P. Picking up object 88-Not attempted due to medical condition or safety concerns R. Wheel 50 feet with two turns 88-Not attempted due to medical condition or safety concerns S. Wheel 150 feet 88-Not attempted due to medical condition or safety concerns - Bladder and Bowel Bladder continence Bowel continence - Endurance Fair - Balance Fair - Safety Awareness Fair CURRENT [facility]. DEFICITS: Self-Care, Mobility, Endurance, Balance, and Safety Awareness SIGNATURE PANEL: (CDT)
== END 2021-09-19 15:30 | disposition home health service (06) | DRG 950 ==
LOC: 5TH 18:29 → EEVIPCON 18:29
PROVIDERS: ADMIT Psychiatry & Neurology Neurology with Special Qualifications in Child Neurology; ATTEND Psychiatry & Neurology Neurology with Special Qualifications in Child Neurology
DX: S06.5X9D Traumatic subdural hemorrhage with loss of consciousness of unspecified duration, subsequent encounter (principal); S02.31XD Fracture of orbital floor, right side, subsequent encounter for fracture with routine healing; S02.2XXD Fracture of nasal bones, subsequent encounter for fracture with routine healing; I10 Essential (primary) hypertension
CPT/HCPCS: 36415; 70450; 74230; 80048; 81001; 82040; 83735; 84132; 84134; 85025; 87086; 87088; 92526; 92611; 97110; 97116; 97161; 97165; 97530; J3475